=== PATIENT | female | born 1980 | race African-American/Black ===

== ENCOUNTER 2017-07-03 14:06 | Emergency (ER) | payer MEDICAID ==
[2016-07-13 09:02] VITALS: BMI 28.7
[~2017-07-03 14:06] MED LIST: BACDS PO; BENZ100C4 PO; CEF300 PO; CIP500 PO; CLI150 PO; CYCL10TA29 PO; DIFLUCAN; DIP25 PO; HYDR-4228 PO; HYDR-4309 PO; HYDR1TAB PO; HYDR50CA47 PO; HYDR50CA48 PO; IBU600 PO; IBU800 PO; IBUP600T22 PO; ILOP6TAB PO; KET10 PO; LAMO25TA64 PO; LOR5 PO; LURA40TA3 PO; METH4TAB66 PO; METR-160 PO; MICO44CM VG; MOM PO; MOTRIN; MULT-1379 PO; MULT-859 PO; MULT1CAP59 PO; NAPR-724 PO; NIC10R INH; NO RTN MEDS; NOR5/325 PO; OMEG-11 PO; OND4 PO; ONDA4TAB PO; PAL3PT PO; PALI6TAB8 PO; PER PO; PRE20 PO; PRED20TA6 PO; PREN-127 PO; PRO25 IV; QUE100 PO; QUET100T29 PO; QUET50TA21 PO; SERT-1 PO; SERT-181 PO; SULF-198 PO; TOPI-119 PO; TOPI-121 PO; TOPI-28 PO; TRA50 PO; TRAZ-156 PO; TRAZ150T8 PO; VAL500 PO; VALA100062 PO
--- NOTE | 2017-07-03 14:07 | ER Report ---
History and Physical Time Seen By MD: 14:06 Allergies: Coded Allergies: bupropion (Verified Allergy, Severe, MIGRAINE/MUSCLE SPASMS, 03/04/17) amoxicillin (Verified Allergy, Mild, 02/11/17) lidocaine (Verified Allergy, Mild, 02/11/17) Penicillins (Verified Adverse Reaction, Severe, THROWS UP VIOLENTLY, ) codeine (Verified Adverse Reaction, Intermediate, NAUSEA/VOMITING, 02/11/17 ) iloperidone (Verified Adverse Reaction, Unknown, 02/11/17) NEUTROPENIA Uncoded Allergies: GRASSES (Allergy, Intermediate, 04/22/10) Home Meds Reported Medications Multivitamin (MULTIVITAMINS) 1 Each Capsule, 1 EACH PO DAILY, CAPSULE 03/07/17 Lamotrigine (LAMICTAL) 25 Mg Tablet, 25 MG PO DAILY 03/07/17 Lurasidone Hcl (LATUDA) 40 Mg Tablet, 40 MG PO QHS 03/07/17 Nicotine (NICOTROL) 10 Mg/Inh Ctr, 10 MG INH use Nicotrol cartridge 02/23/17 [place]-3 Fatty Acids/Fish Oil (FISH OIL 1,000 MG CAPSULE) 1 Each Capsule, 1 EACH PO, CAPSULE purchase over the counter 02/23/17 Hx Smoking: Yes Smoking Status: Current: Every Day Smoker Exposure to Second Hand Smoke?: Yes Hx Substance Use Disorder: No (OCCASSIONAL MARIJUANA) Hx Alcohol Use: Yes KARY CHANDLER MD Jul 03, 2017 14:07
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
[2017-07-03] MEDS ORDERED: LURA60TA (14:14)
[2017-07-03] MEDS ORDERED: ESCI10TA8 PO (14:14)
[2017-07-03] MEDS ORDERED: LAMO100T56 PO ×2 (14:14)
[2017-07-03] MEDS ORDERED: LAMO100T52 PO (14:17)
[2017-07-03] MEDS ORDERED: ESCITALOPRAM OXALATE 10 MG TAB PO ONE (14:35)
[2017-07-03 14:44] LABS: PLATELET COUNT, AUTOMATED 293 K/uL (150-450)
[2017-07-03] MEDS ORDERED: QUET100T29 PO (14:54)
[2017-07-03] MEDS ORDERED: ACETAMINOPHEN 500 MG TAB PO ONE (16:35)
[2017-07-03] MEDS ORDERED: KETOROLAC 60 MG/2 ML VIAL IM ONE (18:30)
[2017-07-04 08:57] VITALS: BP 104/76
== END 2017-07-04 09:00 | disposition short-term general hospital (02) ==
LOC: ER 14:09
DX: R45.851 Suicidal ideations (principal); R51 Headache; F17.200 Nicotine dependence, unspecified, uncomplicated; Z87.440 Personal history of urinary (tract) infections; F31.9 Bipolar disorder, unspecified; F25.9 Schizoaffective disorder, unspecified; F32.9 Major depressive disorder, single episode, unspecified
CPT/HCPCS: 80305; 81001; 81025; 83735; 84443; 85025; 99285; G0480; 80320; 80329; 82040; 82247; 82310; 82374; 82435; 82565; 82947; 84075; 84132; 84155; 84295; 84450; 84460; 84520

== ENCOUNTER → 2017-07-04 | Outpatient (CLI) | payer MEDICAID ==
[2016-07-13 09:02] VITALS: BMI 28.7
[~2017-07-04] MED LIST changes: +ESCI10TA8 PO; +LAMO100T52 PO; +LAMO100T56 PO; +LURA60TA
== END ==
LOC: AMB 08:59
PROVIDERS: ATTEND Nurse Practitioner
DX: R45.851 Suicidal ideations (principal); F32.9 Major depressive disorder, single episode, unspecified
CPT/HCPCS: A0425; A0428

== ENCOUNTER 2017-12-01 20:13 | Emergency (ER) | payer MEDICAID ==
[2016-07-13 09:02] VITALS: Wt 104.8 kg
[~2017-12-01 20:13] MED LIST changes: -NAPR-724 PO; +NAPR500T31 PO
--- NOTE | 2017-12-01 20:22 | ER Report ---
History and Physical Time Seen By MD: 20:21 HPI/ROS CHIEF COMPLAINT: Foot and back pain HISTORY OF PRESENT ILLNESS: 37-year-old female patient presents to emergency room with complaint of bilateral feet and back pain. Patient states that this been going on today. 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 She states that she's been doing a lot of standing. She has bought new shoes does seem to help with the transition. She states that today that she is having significant amount of pain and swelling to her feet and ankles. She states that she has pain to her back as well. She denies any injury. She states she has not taken any medication for this. She denies any fevers, chills, nausea, vomiting or diarrhea. 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 Reported Medications Divalproex Sodium (DEPAKOTE) 500 Mg Tablet.dr, 500 MG PO BID, TAB 12/01/17 Lamotrigine (LAMICTAL) 100 Mg Tablet, 100 MG PO QAM 07/03/17 Discontinued Reported Medications Quetiapine Fumarate (SEROQUEL) 100 Mg Tablet, 100 MG PO QHS 07/03/17 Escitalopram Oxalate (ESCITALOPRAM OXALATE) 10 Mg Tablet, 10 MG PO QDAY, TAB 07/03/17 Lurasidone Hcl (LATUDA) 60 Mg Tablet, QDAY 07/03/17 Past Medical/Surgical History Patient has a past medical history of migraines, heart murmur, ulcers, frequent UTIs, right shoulder fracture, back pain, anemia, occasional marijuana use, alcohol use, bipolar, schizoaffective, multiple personality, depression, suicide attempt. Patient has a surgical history of tonsillectomy, cautery of her nose, right shoulder surgery, left rotator cuff repair, tubal ligation, hysterectomy, appendectomy, umbilical hernia repair. Patient has a family medical history of stroke, [place]. Reviewed Nurses Notes: Yes Hx Smoking: Yes Smoking Status: Current: Every Day Smoker Exposure to Second Hand Smoke?: Yes Hx Substance Use Disorder: No (OCCASSIONAL MARIJUANA) Hx Alcohol Use: Yes Constitutional Vital Sign - Last 24 Hours 12/01/17 20:23 Temp 98.7 Pulse 76 Resp 14 B/P (MAP) 112/74 Pulse Ox 96 O2 Delivery Room Air Physical Exam General Appearance: The patient is alert, has no immediate need for airway protection and no current signs of toxicity. Respiratory: Chest is non tender, lungs are clear to auscultation. Cardiac: regular rate and rhythm Gastrointestinal: Abdomen is soft and non tender, no masses, bowel sounds normal. Musculoskeletal: Neck: Neck is supple and non tender. Extremities have full range of motion and are non tender. Patient does have some mild swelling around the Achilles as well as tenderness to feet. No numbness or tingling. Back: Patient does have bilateral tenderness to paraspinous muscles up in the thoracic spine as well as down to the lumbar spine Skin: No rashes or lesions. DIFFERENTIAL DIAGNOSIS: After history and physical exam differential diagnosis was considered for muscle strain, fracture, contusion. Medical Decision Making EKG/Imaging Imaging Examination: FOOT 3 VIEW RIGHT Comparison: None. History: pain after working today Findings: No fracture. Alignment and joint spaces are normal. Soft tissues are unremarkable. IMPRESSION: Negative right foot. Report Dictated By: Elbert Watkins MD at 12/01/2017 9:56 PM Report E-Signed By: Elbert Watkins MD at 12/01/2017 9:58 PM Examination: FOOT 3 VIEW LEFT Comparison: None. History: pain after working today Findings: No fracture. Alignment and joint spaces are normal. Soft tissues are unremarkable. IMPRESSION: Negative left foot. Report Dictated By: Elbert Watkins MD at 12/01/2017 9:58 PM Report E-Signed By: Elbert Watkins MD at 12/01/2017 9:59 PM Examination: LUMBAR SPINE 4 VIEWS Comparison: None. History: pain after working today Findings: 5 lumbar type vertebral segments. Vertebral body height and alignment is within normal limits. Thoracolumbar, facet, and lumbosacral alignment is maintained. Sacroiliac joints are unremarkable. Soft tissues are unremarkable. IMPRESSION: Negative lumbar spine. Report Dictated By: Elbert Watkins MD at 12/01/2017 10:01 PM Report E-Signed By: Elbert Watkins MD at 12/01/2017 10:02 PM Examination: THORACIC SPINE 3 VIEWS Comparison: None. History: pain after working today Findings: 12 thoracic type vertebral segments. Vertebral body height and alignment is within normal limits. Cervicothoracic alignment is maintained. Disc spaces are unremarkable. Visualized portions of the ribs are intact. No evidence of acute disease in the visualized thorax. IMPRESSION: Negative thoracic spine. Report Dictated By: Elbert Watkins MD at 12/01/2017 9:59 PM Report E-Signed By: Elbert Watkins MD at 12/01/2017 10:01 PM ED Course/Re-evaluation ED Course Patient was admitted to exam room, history and physical were obtained. Differential diagnoses were considered. On examination lungs are clear, heart is regular, abdomen soft nontender. Patient has tenderness to the paraspinous muscles around the thoracic and lumbar spine, also has some tenderness to the feet and especially around the heels and Achilles tendons. X-rays done of the bilateral feet, thoracic and lumbar spines. The results were negative. I discussed with patient the findings on the x-rays. I did tell her that I expected that we would find a negative x-ray. We will go ahead and treat her tonight with Toradol that she can take as needed for pain. We will also start her on diclofenac twice a day for the next 10 days. She is to limit her activity by pain, she has to sit down or rested much she is able to work. She is return to emergency room if condition worsens. Patient verbalized understanding and agreement with plan. Decision to Disposition Date: December 01, 2017 Decision to Disposition Time: 22:10 Depart Departure Latest Vital Signs Vital Signs Date Time Temp Pulse Resp B/P (MAP) Pulse Ox O2 Delivery O2 Flow Rate FiO2 12/01/17 20:23 98.7 76 14 112/74 96 Room Air Impression: Primary Impression: Bilateral foot pain Additional Impression: Spasm of muscle of lower back Condition: Improved Disposition: HOME OR SELF-CARE New Scripts Diclofenac Sodium (DICLOFENAC SODIUM) 75 Mg Tablet. 75 MG PO BID, #20 TAB Prov: SHERLYN RAMIREZ 12/01/17 Patient Instructions: Back Pain (ED) Additional Instructions: Limit activity by pain. Get plenty of rest. Make sure that you are wearing good shoes. Make sure that you are taking time to rest your legs and back when you are working especially as you are new at this job. Take Tylenol as needed for pain. Take the medication as prescribed. Return to the ER if condition worsens. Problem Qualifiers SHERLYN RAMIREZ December 01, 2017 20:22
[2017-12-01] MEDS ORDERED: DIVA500T98 PO (20:31)
--- NOTE | 2017-12-01 22:03 | RADIOLOGY IMAGING REPORT ---
FACILITY: [facility] PATIENT NAME: Jose Luis Roberts : 1980 MR: [id number] V: [id number] EXAM DATE: ORDERING PHYSICIAN: SHERLYN RAMIREZ TECHNOLOGIST: Location: [facility] Patient: Jose Luis Roberts : 1980 Visit/Account:[id number] Date of Sevice: 12/01/2017 Examination: FOOT 3 VIEW RIGHT Comparison: None. History: pain after working today Findings: No fracture. Alignment and joint spaces are normal. Soft tissues are unremarkable. IMPRESSION: Negative right foot. Report Dictated By: Elbert Watkins MD at 12/01/2017 9:56 PM Report E-Signed By: Elbert Watkins MD at 12/01/2017 9:58 PM WSN:[id number]
--- NOTE | 2017-12-01 22:03 | RADIOLOGY IMAGING REPORT ---
FACILITY: [facility] - [place], [place] PATIENT NAME: Jose Luis Roberts : 1980 MR: [id number] V: [id number] EXAM DATE: ORDERING PHYSICIAN: SHERLYN RAMIREZ TECHNOLOGIST: Location: [facility] Patient: Jose Luis Roberts : 1980 Visit/Account:[id number] Date of Sevice: 12/01/2017 Examination: FOOT 3 VIEW LEFT Comparison: None. History: pain after working today Findings: No fracture. Alignment and joint spaces are normal. Soft tissues are unremarkable. IMPRESSION: Negative left foot. Report Dictated By: Elbert Watkins MD at 12/01/2017 9:58 PM Report E-Signed By: Elbert Watkins MD at 12/01/2017 9:59 PM WSN:[id number]
--- NOTE | 2017-12-01 22:05 | RADIOLOGY IMAGING REPORT ---
FACILITY: [facility] PATIENT NAME: Jose Luis Roberts : 1980 MR: [id number] V: [id number] EXAM DATE: ORDERING PHYSICIAN: SHERLYN RAMIREZ TECHNOLOGIST: Location[place] [facility] [place] Patient: Jose Luis Roberts : 1980 Visit/Account:[id number] Date of Sevice: 12/01/2017 Examination: THORACIC SPINE 3 VIEWS Comparison: None. History: pain after working today Findings: 12 thoracic type vertebral segments. Vertebral body height and alignment is within normal l imits. Cervicothoracic alignment is maintained. Disc spaces are unremarkable. Visualized portions of the ribs are intact. No evidence of acute disease in the visualized thorax. IMPRESSION: Negative thoracic spine. Report Dictated By: Elbert Watkins MD at 12/01/2017 9:59 PM Report E-Signed By: Elbert Watkins MD at 12/01/2017 10:01 PM WSN:[id number]
--- NOTE | 2017-12-01 22:06 | RADIOLOGY IMAGING REPORT ---
[place] [facility] [place] PATIENT NAME: Jose Luis Roberts : 1980 MR: [id number] V: [id number] EXAM DATE: ORDERING PHYSICIAN: SHERLYN RAMIREZ TECHNOLOGIST: Location: [facility] Patient: Jose Luis Roberts : 1980 Visit/Account:[id number] Date of Sevice: 12/01/2017 Examination: LUMBAR SPINE 4 VIEWS Comparison: None. History: pain after working today Findings: 5 lumbar type vertebral segments. Vertebral body height and alignment is within normal limi ts. Thoracolumbar, facet, and lumbosacral alignment is maintained. Sacroiliac joints are unremarkable . Soft tissues are unremarkable. IMPRESSION: Negative lumbar spine. Report Dictated By: Elbert Watkins MD at 12/01/2017 10:01 PM Report E-Signed By: Elbert Watkins MD at 12/01/2017 10:02 PM WSN:[id number]
[2017-12-01] MEDS ORDERED: DICL-195 PO (22:09)
[2017-12-01] MEDS ORDERED: KETOROLAC TROM 10 MG TAB TH PO ONE (22:15)
[2017-12-01 22:16] VITALS: BP 114/78
== END 2017-12-01 22:19 | disposition home or self-care (01) ==
LOC: ER 20:38
DX: M79.672 Pain in left foot (principal); M79.671 Pain in right foot; M62.830 Muscle spasm of back
CPT/HCPCS: 72072; 72120; 99283

== ENCOUNTER → 2018-01-27 | Outpatient (CLI) | payer MEDICAID ==
[2016-07-13 09:02] VITALS: BMI 28.7
[~2018-01-27] MED LIST changes: +DICL-195 PO; +DIVA500T98 PO; -TRAZ-156 PO; +TRAZ50TA34 PO
--- NOTE | 2018-01-27 15:07 | RADIOLOGY IMAGING REPORT ---
FACILITY: [facility] [place] PATIENT NAME: SHAKA LORENZ : [id number] MR: [id number] V: [id number] EXAM DATE: [id number] ORDERING PHYSICIAN: JANET THOMAS TECHNOLOGIST: Abigail Acevedo PROCEDURE:BILATERAL DIAGNOSTIC DIGITAL MAMMOGRAM WITH CAD ASSISTED INTERPRETATION & 3D TOMOSYNTHESIS COMPARISON:None. INDICATIONS:LUMP IN UPPER OUTER QUADRANT OF LEFT BREAST FINDINGS: A small to moderate amount of fibroglandular tissue is seen throughout the breasts. There's a small ovoid nodular density in the upper outer quadrant of the Left breast at the junctional middle and posterior 1/3 which could account for patient's palpable findings. Todays targeted Left breast Ultrasound did demonstrate a small fatty replaced lymph node in this location. There is no demonstration of malignant appearing mass, malignant appearing calcifications or other secondary sign of malignancy in either breast. DIAGNOSTIC CATEGORY 2--BENIGN FINDING. RECOMMENDATIONS: ROUTINE MAMMOGRAM AND CLINICAL EVALUATION. CLINICAL EVALUATION. IMPRESSION: BIRADS 2: Benign finding. There's a small ovoid nodular density upper outer quadrant of the Left breast which was shown sonographically to represent a small fatty replaced lymph node. This may account for patient's palpable findings. Clinical follow-up recommended. Dictated by: Katlyn Zimmerman M.D. on 01/27/2018 at 14:48 Transcribed by: ANGELIQUE on 01/27/2018 at 15:02 Approved by: Katlyn Zimmerman M.D. on 01/27/2018 at 15:06 [facility]
--- NOTE | 2018-01-27 15:25 | RADIOLOGY IMAGING REPORT ---
FACILITY: [facility] PATIENT NAME: SHAKA LORENZ : [id number] MR: [id number] V: [id number] EXAM DATE: [id number] ORDERING PHYSICIAN: JANET THOMAS TECHNOLOGIST: Sp Hall RDMS, ALBERT PROCEDURE:US LEFT BREAST COMPARISON:None. INDICATIONS:PALPABLE LUMP UPPER OUTER QUADRANT LEFT BREAST. FINDINGS: In the 2 o'clock position of the Left breast 8cm from the nipple there is a small ovoid fatty replaced intramammary lymph node measuring 7.7 x 7.6 x 3.2mm this likely corresponds to the small nodule seen on Today's mammogram. This may account for patient's palpable findings. DIAGNOSTIC CATEGORY 2--BENIGN FINDING. RECOMMENDATIONS: ROUTINE MAMMOGRAM AND CLINICAL EVALUATION. CLINICAL EVALUATION. IMPRESSION: BIRADS 2: Benign finding. There's a small fatty replaced lymph node 2 o'clock position of the Left breast 8cm from the nipple which would account for Today's mammographic findings. This may account for patient's palpable findings. Clinical follow-up recommended. Dictated by: Katyln Zimmerman M.D. on 01/27/2018 at 15:05 Transcribed by: ANGELIQUE on 01/27/2018 at 15:12 Approved by: Katlyn Zimmerman M.D. on 01/27/2018 at 15:24 [facility]
== END ==
LOC: MAMO 00:45
PROVIDERS: ATTEND Obstetrics & Gynecology
DX: N94.4 Primary dysmenorrhea (principal); N63.21 Unspecified lump in the left breast, upper outer quadrant
CPT/HCPCS: 77062; 77066

== ENCOUNTER 2018-03-14 14:34 | Outpatient (RCR) | payer MEDICAID ==
[2016-07-13 09:02] VITALS: Ht 170.2 cm; Wt 99.8 kg
[~2018-03-14] VITALS: Ht 170.2 cm; Wt 99.8 kg
[~2018-03-14 14:34] MED LIST changes: -HYDR-4309 PO; +HYDR-653 PO
--- NOTE | 2018-03-15 09:30 | Medical Nutrition Therapy ---
Nutrition Anthropometrics Height (Inches): 67 Weight (Pounds): 220 Champ Nutrition Score: Champ Nutrition Risk Score: Dietary Referral Nutrition Risk Factors: Nutrition Risk Comment: Nutrition/Food History Breakfast: 2 eggs,fried brussel sprouts, 1/2c cheese, salsa, 2c daniel-oftens skips Lunch: bronson double leos cheeseburger, often skips Dinner: lasagna, salad koolaid or burger and FF Snacks: Reg Dr nelson, cheee, desserts, juice Nutritional Education Nutrition Education Topic: Weight Loss Diet (wioth dx prediabetes) Learning Readiness: Interested, Not Ready (may not be ready for lifestlye changes at this time.) Teaching Methods: Discussion, Handout, Demonstration Response to Teaching: Verbalize understanding, Reinforcement needed Teaching Recipient: Patient Nutrition Counseling: Pt with A1C 5.8 and dx of prediabetes. Interested in diet changes to avoid dx of diabetes. Discussed what is prediabetes. Emphasised importance of wt loss and exercise. Stressed importance of lifestlye changes rather than "diet". Pt has overwt son she is concerned may develop diabetes. Has paternal family hx of T2DM. Pt has tried tracking intake in past. discussed various staci that she could try. Pt is tracking activity. Encouraged pt to continue activity and tracking. Reviewed typical day and 24 hr recall. Pt has concerns regarding how to incorporate her cultural foods which are fried and desserts. Discussed possibly modifying cooking technique, or having only occasionally. Pt may not be ready for lifestyle changes at this time. Discussed f/u visits reviewing and modifiying her family recipes, exercise, and dealing with cravings. will f/u 03/28 Nutrition Monitoring & Eval RD Patient Assessment Time: 60 minutes Nutritional Comment: Provided 70 minutes MNT for dx prediabetes. JUAN LUIS HUGHES Mar 14, 2018 16:22
[2018-04-08] MEDS ORDERED: ESCI10TA8 PO (14:45)
[2018-04-08] MEDS ORDERED: LAMO25TA64 PO (14:45)
[2018-04-08] MEDS ORDERED: MIRT-1 PO (14:45)
[2018-04-11] MEDS ORDERED: ESCI20TA38 PO (07:17)
[2018-04-11] MEDS ORDERED: MULT-1379 PO (07:18)
[2018-04-11] MEDS ORDERED: IBUP400T13 PO (07:19)
[2018-04-11] MEDS ORDERED: NIC10R INH (07:19)
[2018-04-11] MEDS ORDERED: NICOTROL CARTRIDGE PO (07:20)
[2018-04-11] MEDS ORDERED: NEOM1PAC11 TP (07:21)
[2018-04-11] MEDS ORDERED: ACET-1966 PO (07:23)
--- NOTE | 2018-04-11 12:31 | Medical Nutrition Therapy ---
Nutritional Education Nutrition Education Topic: Weight Loss Diet Learning Readiness: Interested Teaching Methods: Discussion Response to Teaching: Verbalize understanding, Reinforcement needed Teaching Recipient: Patient Nutrition Counseling: Wt stable. Pt has not been tracking foods but is looking at portion sizes. Enouraged pt to get measuring cups out to get better understanding of what a standard portion is vs what her idea of a portion is. Discussed how to involve family and get active. Pt will work on increasing exercise by walking. Set a goal of increasing vegetable intake and adding strenthing exercise to routine. Will f/u Apr 24 @ 2:30. Nutrition Monitoring & Eval RD Patient Assessment Time: [address] Assessment Type: RD Education Nutritional Comment: Provided 40 minutes MNT for dx prediabetes. Copies To Copies to: MELANI OAKES ; JUAN LUIS HUGHES Apr 11, 2018 12:31
== END 2018-04-18 ==
LOC: DIET 14:34
PROVIDERS: ATTEND Nurse Practitioner Family
DX: Z71.3 Dietary counseling and surveillance (principal); R73.03 Prediabetes; Z83.3 Family history of diabetes mellitus; F32.9 Major depressive disorder, single episode, unspecified; R20.2 Paresthesia of skin; E03.9 Hypothyroidism, unspecified; G47.39 Other sleep apnea; E66.09 Other obesity due to excess calories; Z68.34 Body mass index [BMI] 34.0-34.9, adult
CPT/HCPCS: 97802; 97803

== ENCOUNTER 2018-04-08 14:38 | Emergency (ER) | payer SELFPAY ==
[2016-07-13 09:02] VITALS: Wt 90.7 kg
[~2018-04-08 14:38] MED LIST changes: -ACET-1966 PO; -ESCI20TA38 PO; +HYDR-4309 PO; -HYDR-653 PO; -IBUP400T13 PO; -MIRT-1 PO; -NEOM1PAC11 TP; -NICOTROL CARTRIDGE PO
[2018-04-08] MEDS ORDERED: LAMO25TA64 PO (14:45)
[2018-04-08] MEDS ORDERED: ESCI10TA8 PO (14:45)
[2018-04-08] MEDS ORDERED: MIRT-1 PO (14:45)
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
[2018-04-08] MEDS ORDERED: TETRACAIN/EPI/LIDO GEL 3ML SYR TP ONE (15:10)
[2018-04-08 15:33] LABS: PLATELET COUNT, AUTOMATED 284 K/uL (150-450)
--- NOTE | 2018-04-08 16:24 | BHS - Psychiatric Evaluation ---
ER - Title 25 MHE Evaluation Title 25 Evaluation Patient Detained By: Physician Referral Source: PD Date Patient Detained: Apr 08, 2018 Time Patient Detained: 14:30 Date Usp Expires: Apr 11, 2018 Time Usp Expires: 14:30 Legal Status: Police Hold: Yes Legal Status: Residence: [facility] Resident Assessment Data Provided By: Patient, Law Enforcement HPI/ROS: Suicide attempt, pt threatened suicide and cut left wrist Admit due to SI or Attempt: Yes Suicide Plan: Has Plan with Access Alcohol or Drugs Involved: No Is Patient Info Reliable: Yes Is Collateral Info Reliable: Yes Current Risk & History Current Dangerous Risk Assessm: Current Suicide Ideation Past Dangerous Risk Assessm: Suicide Ideation-last 6mo, Suicide Attempts-last 6 mo Previous Suicide Attempt: Past - Low Lethality Previous Psychiatric Illness: Yes Previous Psychiatric Treatment: Yes Risk Assessment & Disposition Evaluated Risk Assessment: moderate risk Impression: Primary Impression: Suicidal ideations Additional Impression: Wrist laceration Meets Mental Illness Req.: Yes Meets Dangerousness Req.: Yes Emergency Usp to be: Upheld Date of Decision: Apr 08, 2018 Time of Decision: 16:00 Patient is Medically Stable at: Yes Disposition: [facility] Problem Qualifiers Additional Impression: Wrist laceration Encounter type: initial encounter Laterality: left Qualified Codes: S61.512A - Laceration without foreign body of left wrist, initial encounter ANDIE TOLEOD MD Apr 08, 2018 16:24
[2018-04-08 16:41] VITALS: BP 111/80
== END 2018-04-08 16:44 | disposition other institution (70) ==
LOC: ER 14:43
DX: S61.512A Laceration without foreign body of left wrist, initial encounter (principal); R45.851 Suicidal ideations
CPT/HCPCS: 36415; 80305; 80320; 80329; 81001; 82040; 82247; 82310; 82374; 82435; 82565; 82947; 84075; 84132; 84155; 84295; 84443; 84450; 84460; 84520; 85025; 99283

== ENCOUNTER 2018-04-08 16:05 | Inpatient (IN) | payer SELFPAY ==
[2016-07-13 09:02] VITALS: Ht 162.6 cm; Wt 90.7 kg
[~2018-04-08] VITALS: Ht 162.6 cm; Wt 90.7 kg
[~2018-04-08 16:05] MED LIST changes: +MIRT-1 PO
[2018-04-08 16:55] VITALS: BP 102/64
[2018-04-08] MEDS ORDERED: ACETAMINOPHEN 325 MG TAB PO PRN (17:00)
[2018-04-08] MEDS ORDERED: NICOTINE INH SYSTEM 10 MG/INH INH PRN (17:00)
[2018-04-08] MEDS ORDERED: MAG HYD/AL HYD/SIMETH 30ML UDC PO PRN (17:00)
[2018-04-08] MEDS ORDERED: NICOTINE CARTRIDGE 1 EA PO PRN (17:00)
[2018-04-08] MEDS: IBUPROFEN 200 MG TAB PO PRN (20:35)
[2018-04-08] MEDS: MIRTAZAPINE 15 MG TAB PO SCH (21:49)
[2018-04-09 06:12] VITALS: BP 87/63
[2018-04-09] MEDS: MULTIVITAMINS PO SCH (08:17)
[2018-04-09] MEDS: lamoTRIgine 25 MG TAB PO SCH (08:17)
[2018-04-09] MEDS: IBUPROFEN 200 MG TAB PO PRN (08:21)
[2018-04-09] MEDS: ESCITALOPRAM OXALATE 10 MG TAB PO SCH (13:37)
[2018-04-09 15:13] VITALS: BP 109/74
[2018-04-09] MEDS: MIRTAZAPINE 15 MG TAB PO SCH (21:08)
[2018-04-10 06:21] VITALS: BP 102/65
[2018-04-10] MEDS: lamoTRIgine 25 MG TAB PO SCH (07:58)
[2018-04-10] MEDS: MULTIVITAMINS PO SCH (07:58)
[2018-04-10] MEDS: IBUPROFEN 200 MG TAB PO PRN (08:00)
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
[2018-04-10] MEDS ORDERED: NEOMYCIN/POLYMYX/BACITR 30 GM TP PRN (13:40)
--- NOTE | 2018-04-10 14:08 | BHS Progress Note ---
[facility] - Subjective Progress Notes Subjective This is a very well known patient to this provider. Patient is under an emergency detainment, for self harm. Patient interacting well with this provider, denies any significant symptoms today, other than mild frustration. Will use triple antibiotic ointment on self inflicted laceration and will plan on discharging to home tomorrow AM, in time to meet with her outpatient therapist, with whom this patient with a longstanding history of borderline personality has a relationship with. No other concerns, no medication changes. Suicidal Ideation: None Homicidal Ideation: None [facility] - Objective Physical Exam Vital Signs Vital Signs Date Time Temp Pulse Resp B/P (MAP) Pulse Ox O2 Delivery O2 Flow Rate FiO2 04/10/18 06:21 98.8 64 15 102/65 (77) 95 CPAP 04/09/18 06:12 2.0 Muscle Strength and Tone: WNL Gait and Station: Steady [facility] Medications Reviewed: Side Effects, Benefits of Medication, Risks Allergies Reviewed: Yes Mental Status Exam General Appearance: Casual, Well Groomed, Good Eye Contact, Cooperative, Polite, Good Interaction; No Unkept, No Tearful, No Psychomotor Agitation, No Psychomotor Retardation, No Bizarre Mannerisms, No Tics Speech: Clear, Spontaneous, Normal Rate, Normal Rhythm, Normal Volume (soft at times), Normal Tone; No Delayed, No Slurred, No Garbled, No Rambling, No In appropriate Mood: Dysthmic/Depressed (improving) Affect: Full and Appropriate, Calm; No Withdrawn, No Tearful, No Anxious, No Agitated Thought Process: Organized, Logical, Goal Directed (can I go home today?); No Loose Associations, No Flight of Ideas Thought Content: No Suicidal Ideation, No Homicidal Ideation, No Delusions, No Auditory Halllucinations, No Visual Hallucinations, No Thought Broadcasting, No Ideas of Reference, No Obsessions, No Compulsions Sensorium: Clear Cognition: Alert & Oriented-Person, Alert & Oriented-Place, Alert & Oriented- Time, Kjrcd-Utvzylrn-Pyxcccsep Memory: Immediate, Recent, Remote Intelligence: Average Insight Judgment: Fair (longstanding history of borderline persionality with progress made over many years. ) [facility] Assessment and Plan [id number] Encounter Date: Apr 10, 2018 [id number] Encounter Time: 10:30 [facility] Plan: Necessary Precautions, Individual/Group Therapy, Admin/Titrate Meds, Educate Patient Tobacco Medications: Started Multpiple Antipsychotics Used: No Problems: (1) Borderline personality disorder Status: Chronic Condition 1. continue treatment. 2. plan for discharge tomorrow AM. MARIO BELCHER MD Apr 10, 2018 14:08
[2018-04-10 14:15] VITALS: BP 108/65
[2018-04-10] MEDS: ESCITALOPRAM OXALATE 10 MG TAB PO SCH (14:15)
[2018-04-10] MEDS: MIRTAZAPINE 15 MG TAB PO SCH (20:28)
[2018-04-11 05:46] VITALS: BP 120/77
[2018-04-11] MEDS ORDERED: ESCI20TA38 PO (07:17)
[2018-04-11] MEDS ORDERED: MULT-1379 PO (07:18)
[2018-04-11] MEDS ORDERED: NIC10R INH (07:19)
[2018-04-11] MEDS ORDERED: IBUP400T13 PO (07:19)
[2018-04-11] MEDS ORDERED: NICOTROL CARTRIDGE PO (07:20)
[2018-04-11] MEDS ORDERED: NEOM1PAC11 TP (07:21)
[2018-04-11] MEDS ORDERED: ACET-1966 PO (07:23)
[2018-04-11] MEDS: lamoTRIgine 25 MG TAB PO SCH (08:00)
[2018-04-11] MEDS: MULTIVITAMINS PO SCH (08:00)
--- NOTE | 2018-04-12 13:49 | SCHAAF DISCHARGE ---
DATE OF ADMISSION: April 08, 2018 DATE OF DISCHARGE: April 11, 2018 ATTENDING PHYSICIAN Henry Ariza MD Patient was seen at approximately 0730 hours on the a.m. of April 11, 2018 for note concerning this dictation. FINAL DIAGNOSES 1. Borderline personality disorder. 2. Bipolar disorder, unspecified. 3. Social stressors. 4. Parent and adult-child relational problem. REASON FOR ADMISSION Please see History and Physical for full details. This is a very well-known 37-year-old female who had multiple admissions to the Behavioral Health Unit here at [facility] over many years. Overall, patient continues to make slow gains and accomplishments regarding her primary diagnosis of borderline personality disorder. Patient engaged in self-harm after having an argument with her daughter, which involved patient being emergency detained and placed on the Behavioral Health Unit. Again, please refer to History and Physical for full details. Patient's suicidal ideation quickly resolved. No aggression towards staff or self-harm was notable on the Unit. Patient took an active role in her treatment and was discharged home. PHYSICAL EXAMINATION Please see emergency room note. Notable for a 37-year-old female well known to the emergency room. Vital signs at the time of admission: Temperature 99.1, pulse 93], respiratory rate 18, blood pressure 113/80 and pulse oximetry 96% on room air. At the time of discharge from [facility] [address], vital signs showed: Temperature 98.1, pulse 78, respiratory rate 15, blood pressure 120/77 and pulse oximetry 93% on room air. Patient was admitted with cuts to left wrist, requiring minimal suturing. A 3 cm horizontal laceration to dermis level only was repaired in the emergency room prior to admission. No tendon injury was identified. Patient is a heavy-set 37-year-old female in no other acute medical stress. MENTAL STATUS EXAMINATION GENERAL APPEARANCE, BEHAVIOR AND ATTITUDE: Cooperative, polite 37-year-old female interacting well, making fair to good eye contact. No psychomotor agitation or retardation. No bizarre mannerisms or tics. Patient interacting well with this provider and other treatment team staff. SPEECH: Within normal limits. Regular rate, rhythm, volume and tone. MOOD: Described as good and improved. AFFECT: Full and mood-congruent. THOUGHT PROCESSES: Goal-directed, logical. No loose associations or flight of ideas. THOUGHT CONTENT: Free of auditory or visual hallucinations, ideas of reference, thought broadcastings, delusions, obsessions or compulsions. The patient is denying suicidal or homicidal ideation. SENSORIUM: Clear. COGNITION: Alert and oriented to person, place, time and situation. MEMORY: Immediate, recent and remote was estimated intact. INTELLIGENCE: Average, based on interview. INSIGHT AND JUDGMENT: Considered grossly intact and improving over the years and appropriate for ongoing outpatient care. Maladaptive stress coping mechanisms continue to exist. RESULTS OF TESTING Imaging: None. Laboratory data: See above. Psychological testing: None. CONSULTATIONS None. TREATMENT Patient remained on current outpatient medication regimen and did participate in individual and group therapy. HOSPITAL COURSE Patient took an active role in her treatment. She did not engage in any self- harm or suicidal behavior on the Unit. She was not aggressive towards staff or other patients. CONDITION OF PATIENT ON DISCHARGE Stable. Considered a minimal risk to herself or others and appropriate for ongoing outpatient management. DISPOSITION The patient was discharged to home and continue to follow up with outpatient treatment. Patient would participate in DBT and individual group therapy. The patient would remain on Lexapro 10 mg daily, Lamictal 50 mg daily and Remeron 15 mg at bedtime. Patient has these medications on an outpatient basis. Patient would return in one week for suture removal. Crisis Line was given should symptoms return. The patient agreed to take medications as prescribed and abstain from any illicit substance use or alcohol. The risks, benefits and alternatives of the above discharge plan were discussed. Informed consent was given to proceed with the above discharge plan by this cooperative patient. AMBER
== END 2018-04-11 08:44 | disposition home or self-care (01) | DRG 883 ==
LOC: BHS 16:05
PROVIDERS: ADMIT Registered Nurse Psychiatric/Mental Health, Adult; ATTEND Registered Nurse Psychiatric/Mental Health, Adult
DX: F60.3 Borderline personality disorder (principal); F33.1 Major depressive disorder, recurrent, moderate; G47.30 Sleep apnea, unspecified; Z99.89 Dependence on other enabling machines and devices; Z88.0 Allergy status to penicillin; Z88.8 Allergy status to other drugs, medicaments and biological substances; Z56.3 Stressful work schedule; Z63.79 Other stressful life events affecting family and household; Z91.5 Personal history of self-harm; Z81.8 Family history of other mental and behavioral disorders; Z72.0 Tobacco use; Z88.5 Allergy status to narcotic agent

== ENCOUNTER → 2018-04-08 | Outpatient (CLI) | payer SELFPAY ==
[2016-07-13 09:02] VITALS: BMI 28.7
[~2018-04-08] MED LIST changes: +ACET-1966 PO; +ESCI20TA38 PO; +IBUP400T13 PO; +MIRT-1 PO; +NEOM1PAC11 TP; +NICOTROL CARTRIDGE PO
== END ==
LOC: AMB 14:24
PROVIDERS: ATTEND Nurse Practitioner
DX: S61.512A Laceration without foreign body of left wrist, initial encounter (principal); X78.9XXA Intentional self-harm by unspecified sharp object, initial encounter
CPT/HCPCS: A0425; A0429

== ENCOUNTER 2018-04-26 11:04 | Outpatient (RCR) | payer MEDICAID ==
[2016-07-13 09:02] VITALS: Wt 102.5 kg
[~2018-04-26 11:04] MED LIST changes: +ACET-1966 PO; +ESCI20TA38 PO; -HYDR-4309 PO; +HYDR-653 PO; +IBUP400T13 PO; -METR-160 PO; +METR500T54 PO; +NEOM1PAC11 TP; +NICOTROL CARTRIDGE PO
--- NOTE | 2018-04-26 17:06 | Medical Nutrition Therapy ---
Nutrition Anthropometrics Height (Inches): 67 Weight (Pounds): 226 Champ Nutrition Score: Champ Nutrition Risk Score: Dietary Referral Nutrition Risk Factors: Nutrition Risk Comment: Nutrition/Food History Breakfast: 2c sonya cream of wheat, tea with 2 T honey Lunch: 1 1/2 grilled chees, 1/2c baked beans, 1c crm mushroom soup, 2T honey w tea Dinner: angelica buffet: orange sesame, grilled chick, sw/sr soup, 2 donuts, rice Snacks: 2 hot dogs, 1c beans, 1c chips Nutritional Education Nutrition Education Topic: Weight Loss Diet Learning Readiness: Interested Teaching Methods: Discussion, Handout Response to Teaching: Verbalize understanding Teaching Recipient: Patient Nutrition Counseling: Wt is down 2# past month. Pt was able to verbalized portions sizes however admits has not been following plan. 24 hr recall est kcal intake was ~ 3100. Reviewed portions and encouraged ~ 1500kcal for wt loss. Pt not interested in tracking. Provided plate method with unlimited veg, 3-4 oz meat, 1 fat, 3 CHO/meal. Provided handouts and reviewed stocking healthy kitchen and menues. Pt will f/u for weigh in only 11:00 May 14 and session May 24 @ 11:00. Nutrition Monitoring & Eval RD Patient Assessment Time: [address] Assessment Type: RD Education Nutritional Comment: Provided 40 minutes MNT for dx prediabetes. Copies To Copies to: MELANI OAKES ; JUAN LUIS HUGHES Apr 26, 2018 17:06
== END 2018-05-31 ==
LOC: DIET 11:04
PROVIDERS: ATTEND Nurse Practitioner Family
DX: Z71.3 Dietary counseling and surveillance (principal); R73.03 Prediabetes; E66.09 Other obesity due to excess calories
CPT/HCPCS: 97803

== ENCOUNTER 2018-07-11 15:49 | Outpatient (RCR) | payer MEDICAID ==
[2016-07-13 09:02] VITALS: Ht 170.2 cm; Wt 105.2 kg
[~2018-07-11] VITALS: Ht 170.2 cm; Wt 105.2 kg
[~2018-07-11 15:49] MED LIST changes: +METF-452 PO; +METR500T15 PO; -METR500T54 PO; +OLAN5TAB25 PO; +ONDA4TAB97 PO; +VALA500T66 PO; +sonata
--- NOTE | 2018-07-12 16:07 | Medical Nutrition Therapy ---
Nutrition Anthropometrics Height (Inches): 67 Weight (Pounds): 227 BMI: 35.6 Champ Nutrition Score: Champ Nutrition Risk Score: Dietary Referral Nutrition Risk Factors: Nutrition Risk Comment: Nutrition/Food History Breakfast: skips Lunch: hamb patten on thin bun, avocado Dinner: whole tortino pizza Snacks: 1/4c almonds, fruit Nutritional Education Nutrition Education Topic: Diabetic Nutrition Learning Barriers: Emotional Learning Readiness: Interested Teaching Methods: Discussion, Handout, Demonstration Response to Teaching: Verbalize understanding, Reinforcement needed Teaching Recipient: Patient Nutrition Counseling: Pt was seen in Mar 2018 with elevated BG and A1C 5.8. Was seen for f/u 3 weeks later with stable weight and didn't make recommended diet changes. Pt was no- show for 2nd f/u meeting. Requested this session. Reported that A1C is "over 6 but I don't know what it is". Pt is now taking Victoza and having some hypoglycemia. Pt reported motivated to follow a wt loss meal plan and obtain education to help control diabetes. Reviewed what is diabetes, completed self assessment with diabetes distress issues, nutrtion, glucometer teaching, how to handle hypo and hyperglycemia. Pt will conduct 3 day intensive Bg testing of 7X/day to help determine high, lows and food impact to BG. Pt scheduled for classes. Pt reported extensive psychological issues. Pt reports recieving tx and seeing counselor. Reports no concerns to harm self or others at this time. Pt refused visit with [facility] staff at this time. Nutrition Monitoring & Eval RD Patient Assessment Time: [address] Assessment Type: RD Education Nutritional Comment: Provided 60 minutes diabetes education focusing on what is diabetes, pt self assessment, support plan, scheduleing classes, and demonstrating 3 day intensive BG test of 6X/day. Copies To Copies to: EMLANI OAKES ; JUAN LUIS HUGHES Jul 11, 2018 17:11
--- NOTE | 2018-07-26 15:50 | Medical Nutrition Therapy ---
Nutrition Anthropometrics Height (Inches): 67 Weight (Pounds): 232 BMI: 36.5 Champ Nutrition Score: Champ Nutrition Risk Score: Dietary Referral Nutrition Risk Factors: Nutrition Risk Comment: Physical Findings Physical Appearance: Obese BMI 30-39 Skin Appearance Skin Appearance: Edema Edema Location Modifier: Edema Location: Type of Edema: Degree of Edema: Gastrointestinal Symptoms GI Symtoms: Tube Present: Bowel Sounds: Recent Bowel Pattern: Stool Characteristics: Nutritional Education Nutrition Education Topic: Diabetic Nutrition Learning Readiness: Eager, Interested Teaching Methods: Discussion, Handout Response to Teaching: Return demonstration, Verbalize understanding Teaching Recipient: Patient Nutrition Counseling: Pt weighed in at 232.5#, an increase from last time. RD provided education on what foods have CHO, what foods will raise blood sugar, and glycemix index. Discussion also focused on eating a variety of foods (protein, fat, fiber, and CHO) at meals to lessen the glycemix response, and how to eat out while managing CHO. RD encouraged exercise for weight management, starting with a goal of 30 minutes/day, possibly in 3, 10 minute sessions/day. Pt was provided with 3 handouts on topics including: diabetes, goals, and eating out. Pt was eager and stated that they have already started making lifestyle changes. -SHELBI Nutrition Monitoring & Eval RD Patient Assessment Time: [address] Assessment Type: RD Education Nutritional Comment: Provided 60 minutes diabetes education focusing on what is diabetes, pt self assessment, support plan, scheduleing classes, and demonstrating 3 day intensive BG test of 6X/day. 07/26/18-RD provided 60 minutes of diabetes education focusing on what foods have CHO, serving sizes, glycemic index, and eating out. -KRISS BENTLEY Jul 26, 2018 15:50
--- NOTE | 2018-07-27 11:04 | Medical Nutrition Therapy ---
Nutritional Education Nutrition Education Topic: Diabetic Nutrition Teaching Recipient: Patient Nutrition Counseling: Pt weighed in at 232.5#, an increase from last time. RD provided education on what foods have CHO, what foods will raise blood sugar, and glycemix index. Discussion also focused on eating a variety of foods (protein, fat, fiber, and CHO) at meals to lessen the glycemix response, and how to eat out while managing CHO. RD encouraged exercise for weight management, starting with a goal of 30 minutes/day, possibly in 3, 10 minute sessions/day. Pt was provided with 3 handouts on topics including: diabetes, goals, and eating out. Pt was eager and stated that they have already started making lifestyle changes. -ARG Nutrition Monitoring & Eval RD Patient Assessment Time: [address] Assessment Type: RD Education Nutritional Comment: Provided 60 minutes diabetes education focusing on what is diabetes, pt self assessment, support plan, scheduleing classes, and demonstrating 3 day intensive BG test of 6X/day. 07/26/18-RD provided 60 minutes of diabetes education focusing on what foods have CHO, serving sizes, glycemic index, and eating out. -SHELBI Copies To Copies to: MELANI OAKES ; JUAN LUIS HUGHES Jul 27, 2018 11:04
--- NOTE | 2018-08-04 13:05 | Medical Nutrition Therapy ---
Nutritional Education Nutrition Education Topic: Diabetic Nutrition Learning Readiness: Interested Teaching Methods: Discussion, Handout, Demonstration Response to Teaching: Verbalize understanding Teaching Recipient: Patient Nutrition Counseling: Provided group diabetes education on: sick day management, oral health, complication, A1C, eye care and retinopathy, nephropathy, neuropathy, foot care, exercise, heart healthy, hypo and hyperglycemia, infection, personal health habits, stress, depression and sexual healthy. Nutrition Monitoring & Eval RD Patient Assessment Time: [address] Assessment Type: RD Education Nutritional Comment: Provided 75 minutes diabetes education in a group setting focusing on life skills. Copies To Copies to: MELANI OAKES ; JUAN LUIS HUGHES Aug 04, 2018 13:03
== END 2018-08-15 ==
LOC: DIET 15:49
PROVIDERS: ATTEND Nurse Practitioner Family
DX: E11.65 Type 2 diabetes mellitus with hyperglycemia (principal)
CPT/HCPCS: G0108; G0109

== ENCOUNTER 2018-09-26 15:45 | Emergency (ER) | payer MEDICAID ==
[2016-07-13 09:02] VITALS: Wt 110.2 kg
[2018-09-26] MEDS ORDERED: OLAN10TA21 PO (16:00)
[2018-09-26] MEDS ORDERED: SERT-173 PO (16:00)
--- NOTE | 2018-09-26 16:26 | ER Report ---
History and Physical Time Seen By MD: 16:00 Hx. of Stated Complaint: SI HPI/ROS Chief complaint: Suicidal ideation HPI: 38 year old female presents with suicidal ideation. Patient reports that she got into her car today and had thoughts of driving her car off of a bridge or anything that would end her life. Patient called her counselor who advised her to go to the ER. Patient was brought to the ED by her daughter who she states is a big support for her. Patient has attempted suicide over 27 times in the past, the most recent was cutting her left wrist in April. Patient states she recently moved in with her boyfriend, which she feels is the trigger to her recent suicidal thoughts. Reports that she was in [place] last week where she slept most of the time and wished she wouldn't wake up. When she returned home last week, stressors snowballed throughout the week, including moving in with her boyfriend and she had enough stress build up that it led to her suicidal thoughts. Patient also reports she stopped her lamictal about a week and a half ago due to running out of her medication; her psych provider is aware of this. Patient reports she feels bad leaving her family to take care of herself, however she would like to be admitted to [facility]. ROS: Cardiovascular: Denies chest pain, pressure Respiratory: Denies cough, shortness of breath Gastrointestinal: Denies vomiting, nausea, constipation, diarrhea Psych: Reports depression, suicidal ideation, anxiety. Allergies: Coded Allergies: bupropion (Verified Allergy, Severe, MIGRAINE/MUSCLE SPASMS, 09/26/18) amoxicillin (Verified Allergy, Mild, 09/26/18) lidocaine (Verified Allergy, Mild, 09/26/18) Penicillins (Verified Adverse Reaction, Severe, THROWS UP VIOLENTLY, 09/26/18) codeine (Verified Adverse Reaction, Intermediate, NAUSEA/VOMITING, 09/26/18) iloperidone (Verified Adverse Reaction, Unknown, 09/26/18) NEUTROPENIA Uncoded Allergies: GRASSES (Allergy, Intermediate, 04/22/10) Home Meds Reported Medications Sertraline Hcl (ZOLOFT) 100 Mg Tablet, 1 TAB PO QDAY, TAB 09/26/18 Olanzapine (ZYPREXA) 10 Mg Tablet, 10 MG PO QDAY 09/26/18 Metformin Hcl (METFORMIN HCL) 1,000 Mg Tablet, 500 MG PO QDAY, TAB 12/25/18 Valacyclovir Hcl (VALTREX) 500 Mg Tablet, 800 MG PO PRN 06/22/18 Acetaminophen (TYLENOL) 325 Mg Tablet, 800 MG PO, TAB 06/22/18 Ibuprofen (IBUPROFEN) 400 Mg Tablet, 1 TAB PO Q6H for PAIN, TAB MOTRIN 04/11/18 Discontinued Reported Medications Olanzapine (ZYPREXA) 5 Mg Tablet, 5 MG PO QDAY 06/22/18 [sonata] No Conflict Check, 10 MG 06/22/18 Escitalopram Oxalate (LEXAPRO) 20 Mg Tablet, 15 MG PO QDAY, TAB 06/22/18 Lamotrigine (LAMICTAL) 100 Mg Tablet, 100 MG PO DAILY 06/22/18 Discontinued Scripts Ondansetron Hcl (ZOFRAN) 4 Mg Tablet, 4 MG PO Q6H PRN for NAUSEA/VOMITING, #20 TAB Prov:SHERLYN RAMIREZ YARD BRAKEMAN 06/22/18 Past Medical/Surgical History Past medical history significant for migraines, heart murmur when younger, gastric ulcers, back pain, right shoulder fracture in 2006, diabetes, anemia, bipolar, schizophrenic affective disorder, multiple personality disorder, depresion. Past surgical history significant for umbilical hernia repair at 2 months of age, appendectomy at age 12 or 13, hysterectomy 2008, tubal ligation in 2007, right shoulder surgery in 2006, nose cauterized 4-6 times at ages 5 and 6, tonsillectomy at age 13. Reviewed Nurses Notes: Yes Hx Smoking: Yes Smoking Status: Former Smoker Exposure to Second Hand Smoke?: Yes Hx Substance Use Disorder: No (OCCASSIONAL MARIJUANA) Hx Alcohol Use: Yes Constitutional Vital Sign - Last 24 Hours 09/26/18 09/26/18 15:53 18:04 Temp 98.7 Pulse 88 82 Resp 16 B/P (MAP) 107/80 110/70 (83) Pulse Ox 94 98 O2 Delivery Room Air Room Air Physical Exam General Appearance: The patient is alert, has no immediate need for airway protection and no current signs of toxicity. Eyes: Pupils equal and round no injection. Respiratory: Chest is non tender, lungs are clear to auscultation. Cardiac: regular rate and rhythm Gastrointestinal: Abdomen is soft and non tender, no masses, bowel sounds normal . Skin: No rashes or lesions. Psych: Patient tearful, and anxious throughout exam DIFFERENTIAL DIAGNOSIS: After history and physical exam differential diagnosis was considered for suicidal ideation, depression, anxiety. Medical Decision Making Data Points Result Diagram: 09/26/18 1632 09/26/18 1632 Laboratory Hematology Test 09/26/18 16:24 09/26/18 16:32 Urine Color Yellow Urine Clarity Clear Urine pH 6.0 pH (4.8-9.5) Urine Specific [place] 1.014 Urine Protein Negative mg/dL (NEGATIVE) Urine Glucose (UA) Negative mg/dL (NEGATIVE) Urine Ketones Negative mg/dL (NEGATIVE) Urine Blood Moderate (NEGATIVE) Urine Nitrite Negative (NEGATIVE) Urine Bilirubin Negative (NEGATIVE) Urine Urobilinogen 2.0 mg/dL (0.2-1.9) Urine Leukocyte Esterase Small (NEGATIVE) Urine RBC 2 /HPF (0-2/HPF) Urine WBC <1 /HPF (0-5/HPF) Urine Squamous Epithelial Cells Many /LPF (</=FEW) Urine Bacteria Few /HPF (NONE-FEW) Urine Mucus Few /HPF (NONE-FEW) Urine HCG, Qualitative Negative (NEGATIVE) Urine Opiates Screen Negative Urine Barbiturates Screen Negative Ur Tricyclic Antidepressants Screen Negative Urine Phencyclidine Screen Negative Urine Amphetamines Screen Negative Urine Benzodiazepines Screen Negative Urine Cocaine Screen Negative Urine Cannabinoids Screen Negative Red Blood Count 4.52 M/uL (4.17-5.56) Mean Corpuscular Volume 84.8 fL (80.0-96.0) Mean Corpuscular Hemoglobin 27.7 pg (26.0-33.0) Mean Corpuscular Hemoglobin Concent 32.7 g/dL (32.0-36.0) Red Cell Distribution Width 14.3 % (11.5-14.5) Mean Platelet Volume 7.8 fL (7.2-11.1) Neutrophils (%) (Auto) 54.0 % (39.4-72.5) Lymphocytes (%) (Auto) 34.9 % (17.6-49.6) Monocytes (%) (Auto) 8.0 % (4.1-12.4) Eosinophils (%) (Auto) 2.5 % (0.4-6.7) Basophils (%) (Auto) 0.6 % (0.3-1.4) Nucleated RBC Relative Count (auto) 0.0 /100WBC Neutrophils # (Auto) 2.9 K/uL (2.0-7.4) Lymphocytes # (Auto) 1.8 K/uL (1.3-3.6) Monocytes # (Auto) 0.4 K/uL (0.3-1.0) Eosinophils # (Auto) 0.1 K/uL (0.0-0.5) Basophils # (Auto) 0.0 K/uL (0.0-0.1) Nucleated RBC Absolute Count (auto) 0.00 K/uL Sodium Level 139 mmol/L (137-145) Potassium Level 3.6 mmol/L (3.5-5.0) Chloride Level 108 mmol/L (98-107) Carbon Dioxide Level 22 mmol/L (22-31) Blood Urea Nitrogen 14 mg/dl (7-18) Creatinine 0.70 mg/dl (0.52-1.04) Glomerular Filtration Rate Calc > 60.0 Random Glucose 125 mg/dl (75-110) Calcium Level 9.3 mg/dl (8.4-10.2) Magnesium Level 2.2 mg/dl (1.7-2.2) Total Bilirubin 0.2 mg/dl (0.2-1.3) Aspartate Amino Transf (AST/SGOT) 22 U/L (0-35) Alanine Aminotransferase (ALT/SGPT) 24 U/L (0-56) Alkaline Phosphatase 94 U/L (0-126) Total Protein 8.3 g/dl (6.3-8.2) Albumin 4.5 g/dl (3.5-5.0) Salicylates Level < 10 mg/L Salicylate Last Dose Date unk Acetaminophen Level < 10 ug/ml Serum Alcohol < 10 mg/dl Chemistry Test 09/26/18 16:24 09/26/18 16:32 Urine Color Yellow Urine Clarity Clear Urine pH 6.0 pH (4.8-9.5) Urine Specific [place] 1.014 Urine Protein Negative mg/dL (NEGATIVE) Urine Glucose (UA) Negative mg/dL (NEGATIVE) Urine Ketones Negative mg/dL (NEGATIVE) Urine Blood Moderate (NEGATIVE) Urine Nitrite Negative (NEGATIVE) Urine Bilirubin Negative (NEGATIVE) Urine Urobilinogen 2.0 mg/dL (0.2-1.9) Urine Leukocyte Esterase Small (NEGATIVE) Urine RBC 2 /HPF (0-2/HPF) Urine WBC <1 /HPF (0-5/HPF) Urine Squamous Epithelial Cells Many /LPF (</=FEW) Urine Bacteria Few /HPF (NONE-FEW) Urine Mucus Few /HPF (NONE-FEW) Urine HCG, Qualitative Negative (NEGATIVE) Urine Opiates Screen Negative Urine Barbiturates Screen Negative Ur Tricyclic Antidepressants Screen Negative Urine Phencyclidine Screen Negative Urine Amphetamines Screen Negative Urine Benzodiazepines Screen Negative Urine Cocaine Screen Negative Urine Cannabinoids Screen Negative White Blood Count 5.3 k/uL (4.5-11.0) Red Blood Count 4.52 M/uL (4.17-5.56) Hemoglobin 12.5 g/dL (12.0-16.0) Hematocrit 38.3 % (34.0-47.0) Mean Corpuscular Volume 84.8 fL (80.0-96.0) Mean Corpuscular Hemoglobin 27.7 pg (26.0-33.0) Mean Corpuscular Hemoglobin Concent 32.7 g/dL (32.0-36.0) Red Cell Distribution Width 14.3 % (11.5-14.5) Platelet Count 307 K/uL (150-450) Mean Platelet Volume 7.8 fL (7.2-11.1) Neutrophils (%) (Auto) 54.0 % (39.4-72.5) Lymphocytes (%) (Auto) 34.9 % (17.6-49.6) Monocytes (%) (Auto) 8.0 % (4.1-12.4) Eosinophils (%) (Auto) 2.5 % (0.4-6.7) Basophils (%) (Auto) 0.6 % (0.3-1.4) Nucleated RBC Relative Count (auto) 0.0 /100WBC Neutrophils # (Auto) 2.9 K/uL (2.0-7.4) Lymphocytes # (Auto) 1.8 K/uL (1.3-3.6) Monocytes # (Auto) 0.4 K/uL (0.3-1.0) Eosinophils # (Auto) 0.1 K/uL (0.0-0.5) Basophils # (Auto) 0.0 K/uL (0.0-0.1) Nucleated RBC Absolute Count (auto) 0.00 K/uL Glomerular Filtration Rate Calc > 60.0 Calcium Level 9.3 mg/dl (8.4-10.2) Magnesium Level 2.2 mg/dl (1.7-2.2) Total Bilirubin 0.2 mg/dl (0.2-1.3) Aspartate Amino Transf (AST/SGOT) 22 U/L (0-35) Alanine Aminotransferase (ALT/SGPT) 24 U/L (0-56) Alkaline Phosphatase 94 U/L (0-126) Total Protein 8.3 g/dl (6.3-8.2) Albumin 4.5 g/dl (3.5-5.0) Salicylates Level < 10 mg/L Salicylate Last Dose Date unk Acetaminophen Level < 10 ug/ml Serum Alcohol < 10 mg/dl Toxicology Test 09/26/18 16:24 09/26/18 16:32 Urine Opiates Screen Negative Urine Barbiturates Screen Negative Ur Tricyclic Antidepressants Screen Negative Urine Phencyclidine Screen Negative Urine Amphetamines Screen Negative Urine Benzodiazepines Screen Negative Urine Cocaine Screen Negative Urine Cannabinoids Screen Negative Salicylates Level < 10 mg/L Salicylate Last Dose Date unk Acetaminophen Level < 10 ug/ml Serum Alcohol < 10 mg/dl Urinalysis Test 09/26/18 16:24 Urine Color Yellow Urine Clarity Clear Urine pH 6.0 pH (4.8-9.5) Urine Specific [place] 1.014 Urine Protein Negative mg/dL (NEGATIVE) Urine Glucose (UA) Negative mg/dL (NEGATIVE) Urine Ketones Negative mg/dL (NEGATIVE) Urine Blood Moderate (NEGATIVE) Urine Nitrite Negative (NEGATIVE) Urine Bilirubin Negative (NEGATIVE) Urine Urobilinogen 2.0 mg/dL (0.2-1.9) Urine Leukocyte Esterase Small (NEGATIVE) Urine RBC 2 /HPF (0-2/HPF) Urine WBC <1 /HPF (0-5/HPF) Urine Squamous Epithelial Cells Many /LPF (</=FEW) Urine Bacteria Few /HPF (NONE-FEW) Urine Mucus Few /HPF (NONE-FEW) Urine HCG, Qualitative Negative (NEGATIVE) ED Course/Re-evaluation ED Course Patient admitted to an exam room, history and physical obtained, differential diagnoses considered. Patient reports suicidal ideation today. Reports that she got into her car today and had thoughts of driving her car off of a bridge or anything that would end her life. Patient called her counselor who advised her to go to the ER. Patient was brought to the ED by her daughter who she states is a big support for her. Patient has attempted suicide over 27 times in the past, last occurrence was in April. Patient states she recently moved in with her boyfriend, which she feels is the trigger to her recent suicidal thoughts. Reports that she was in [place] last week where she slept most of the time and wished she wouldn't wake up. When she returned home last week, stressors snowballed throughout the week, including moving in with her boyfriend and she had enough stress build up that it led to her suicidal thoughts. Patient would like to be admitted to [facility]. Toxicology screen performed. [facility] consulted and [facility] tech interviewed patient. Dr. López agreed to admit patient to [facility]. Patient transferred to [facility]. 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 López consulted for admission to [facility]. Provider in agreement to admit to [facility]. Problem Qualifiers Additional Impression: Bipolar disorder Active/Remission status: currently active Current bipolar episode type: depressed Current episode severity: severe Psychotic features: without psychotic features Qualified Codes: F31.4 - Bipolar disorder, current episode depressed, severe, without psychotic features SHERLYN RAMIREZ Sep 26, 2018 16:26
[2018-09-26 16:47] LABS: PLATELET COUNT, AUTOMATED 307 K/uL (150-450)
[2018-09-26] MEDS ORDERED: LORazepam 1 MG TAB PO ONE (17:15)
[2018-09-26 18:04] VITALS: BP 110/70
== END 2018-09-26 18:09 ==
LOC: ER 16:13
DX: F31.4 Bipolar disorder, current episode depressed, severe, without psychotic features (principal); R45.851 Suicidal ideations; E11.9 Type 2 diabetes mellitus without complications
CPT/HCPCS: 36415; 80305; 81001; 81025; 83735; 84443; 85025; 99284; G0480; 80320; 80329; 82040; 82247; 82310; 82374; 82435; 82565; 82947; 84075; 84132; 84155; 84295; 84450; 84460; 84520

== ENCOUNTER 2018-09-26 18:00 | Inpatient (IN) | payer MEDICAID ==
[2016-07-13 09:02] VITALS: Ht 170.2 cm; Wt 110.2 kg
[~2018-09-26] VITALS: Ht 170.2 cm; Wt 110.2 kg
[~2018-09-26 18:00] MED LIST changes: +OLAN10TA21 PO; +SERT-173 PO
[2018-09-26] MEDS ORDERED: IBUPROFEN 200 MG TAB PO PRN (19:30)
[2018-09-26] MEDS ORDERED: ACETAMINOPHEN 325 MG TAB PO PRN (19:30)
[2018-09-26] MEDS ORDERED: MAG HYD/AL HYD/SIMETH 30ML UDC PO PRN (19:30)
[2018-09-26] MEDS ORDERED: hydrOXYzine PAMOATE 25 MG CAP PO PRN (19:30)
[2018-09-26 19:41] VITALS: BP 104/71
[2018-09-26] MEDS ORDERED: NICOTINE CARTRIDGE 1 EA PO PRN (20:35)
[2018-09-26] MEDS: OLANZapine 5 MG TAB PO SCH (21:15)
[2018-09-26] MEDS: SERTRALINE HCL 50 MG TAB PO SCH (21:16)
[2018-09-27 06:06] VITALS: BP 95/66
[2018-09-27] MEDS: MULTIVITAMINS PO SCH (08:21)
[2018-09-27] MEDS ORDERED: metFORMIN HCL 500 MG TAB PO SCH ×2 (09:00→21:00)
--- NOTE | 2018-09-27 09:54 | EKG ---
FACILITY: [facility] PATIENT NAME: SHAKA LORENZ : [id number] MR: [id number] V: [id number] EXAM DATE: ORDERING PHYSICIAN: JUNE LNIARES TECHNOLOGIST: CULLEN Willams Reason : Blood Pressure : / mmHG Vent. Rate : 071 BPM Atrial Rate : 071 BPM P-R Int : 156 ms QRS Dur : 090 ms QT Int : 378 ms P-R-T Axes : 043 059 042 degrees QTc Int : 410 ms Normal sinus rhythm Normal ECG No previous ECGs available Confirmed by Stefan Duong [id number]) on 09/27/2018 4:31:35 PM Referred By: Confirmed By:Stefan David
[2018-09-27 11:40] VITALS: BP 103/70
[2018-09-27 11:45] VITALS: BP 103/70
[2018-09-27] MEDS: NICOTINE INH SYSTEM 10 MG/INH INH PRN ×2 (14:06→16:10)
[2018-09-27] MEDS: valACYclovir HCL 500 MG TAB PO SCH (15:50)
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
[2018-09-27] MEDS: OLANZapine 5 MG TAB PO SCH (20:50)
[2018-09-27] MEDS: SERTRALINE HCL 50 MG TAB PO SCH (20:50)
[2018-09-27 21:59] VITALS: BP 112/83
[2018-09-28 06:32] VITALS: BP 93/61
[2018-09-28] MEDS: valACYclovir HCL 500 MG TAB PO SCH (08:24)
[2018-09-28] MEDS: MULTIVITAMINS PO SCH (08:24)
[2018-09-28] MEDS: metFORMIN HCL 500 MG TAB PO SCH ×2 (08:24→17:20)
[2018-09-28 13:39] VITALS: BP 100/64
--- NOTE | 2018-09-28 13:42 | BHS Progress Note ---
S - Subjective Progress Notes Subjective Jose Luis had been actively working on her emotional issues and trying to apply what she is learning in DBT. Specifically, she is using the REBT protocol and has found that helps her. She realizes that boredom is a big problem for her. This is especially the case since she is not going to be working. She has been thinking about ways to occupy her time with volunteer work or other activities. She tends to stay in bed when not actively engaged. Jose Luis also feels that she is not "ready for a relationship." She is thinking that her boyfriend's moving in with her has caused a lot of problems. Jose Luis is better as far as her depression today. She rates it at a "2" on a scale of one-to-ten. She has had no thoughts of suicide since yesterday afternoon. She still feels anxious often. I got a call back from Jose Luis's psychiatrist, Dr. Gutierrez, at [facility] in [place]. We talked about her needs, reviewed her medications history and discussed changes to her medication. I learned that Dr. Gutierrez did not taper Cheslyjoaquin off of the Lamictal. She stopped it on her own when she ran out while visiting parents in [place]. After this conversation, I am continuing the Zyprexa and increasing the Zoloft to [address] Gutierrez will explore alternatives to Zyprexa after she is released from the hospital and see her in the clinic soon. We also discussed discharge options including [facility] in [place] as a step-down. Suicidal Ideation: None Homicidal Ideation: None S - Objective Physical Exam Vital Signs Vital Signs 09/28/18 06:32 Temp 98.4 Pulse 75 Resp 15 B/P (MAP) 93/61 (72) Pulse Ox 93 O2 Delivery CPAP Muscle Strength and Tone: WNL Gait and Station: Steady [facility] Medications Reviewed: Side Effects, Benefits of Medication, Risks Allergies Reviewed: Yes Mental Status Exam General Appearance: Casual, Well Groomed, Good Eye Contact, Cooperative, Polite Speech: Clear, Spontaneous, Normal Rate, Normal Rhythm, Normal Volume, Normal Tone Mood: Other (depression is a two out of ten. Has anxiety) Affect: Full and Appropriate Thought Process: Organized, Logical, Goal Directed Thought Content: No Suicidal Ideation, No Homicidal Ideation Sensorium: Clear Cognition: Alert & Oriented-Person, Alert & Oriented-Place, Alert & Oriented- Time, Nexci-Kqtctlwh-Gquuevxar, Other Memory: Immediate, Recent, Remote, Other Intelligence: Average Insight Judgment: Fair [facility] Assessment and Plan Optv-sl-Iasg Encounter Date: Sep 28, 2018 Xylq-vd-Eick Encounter Time: 11:00 [facility] Plan: Admit to Unit, Necessary Precautions, Individual/Group Therapy, Admin/Titrate Meds, Educate Patient Problems: (1) Schizoaffective disorder, bipolar type Assessment & Plan: Will continue Zyprexa for now and increase Zoloft to 150 mgs. Continue group and individual therapy (2) Borderline personality disorder Status: Chronic (3) Diabetes mellitus type 2 in obese Assessment & Plan: Continue metformin 500 mgs twice daily. (4) Recurrent genital herpes Status: Acute Assessment & Plan: Valtrex Condition Jose Luis is less depressed today than yesterday and much less than two days ago even without major medication changes suggesting a high vulnerability to stress. I will increase her Zoloft and continue the other medications the same for now. JUNE LINARES DO Sep 28, 2018 13:42
[2018-09-28] MEDS: OLANZapine 5 MG TAB PO SCH (20:42)
[2018-09-28] MEDS ORDERED: SERTRALINE HCL 50 MG TAB PO SCH (21:00)
[2018-09-28 22:37] VITALS: BP 105/67
[2018-09-29 06:16] VITALS: BP 98/65
[2018-09-29] MEDS: MULTIVITAMINS PO SCH (08:19)
[2018-09-29] MEDS: valACYclovir HCL 500 MG TAB PO SCH (08:19)
[2018-09-29] MEDS: metFORMIN HCL 500 MG TAB PO SCH (08:19)
[2018-09-29] MEDS ORDERED: METF-450 PO (12:58)
[2018-09-29] MEDS ORDERED: SERT-173 PO (16:52)
[2018-09-29] MEDS ORDERED: SERT-184 PO (16:54)
[2018-09-29] MEDS ORDERED: OLAN10TA21 PO (16:55)
--- NOTE | 2018-09-30 23:47 | DISCHARGE SUMMARY ---
DATE OF ADMISSION: September 26, 2018 DATE OF DISCHARGE: September 29, 2018 ATTENDING PHYSICIAN Radha López DO TYPE OF ADMISSION Voluntary. TYPE OF DISCHARGE Routine. DISCHARGE DIAGNOSES 1. Schizoaffective disorder, bipolar type. 2. Borderline personality disorder. 3. Diabetes mellitus type 2. 4. Obesity. 5. Recurrent genital herpes. PRESENTING PROBLEMS AND REASON FOR ADMISSION Jose Luis presented to the Emergency Department on the evening of 09/26/18 reporting that she had gotten into her car on that day, but was having thoughts of driving off a bridge or doing something that would end her life. She called her counselor, who advised her to go to the Emergency Department. Her daughter brought her there. Jose Luis is considered a high risk given that she has attempted suicide over 27 times in the past, and the most recent episode was last April when she cut her left wrist. Another stressor of note is that her boyfriend had recently moved in to her home, and this had caused her more difficulty. She had been in [place] the previous week to visit her parents, but slept most of the time and said that she wished she would not wake up. When she returned home, she found her stressors to be overwhelming and began once again to think about suicide. I interviewed the patient on the morning of 09/27/18. At that time, she affirmed that she was feeling "stressed out" and thinking a lot about suicide. She believed that it was a mistake for her to have her boyfriend move in, but was frustrated because he had no other place to live. She also mentioned that she has been seeing Dr. Gutierrez, a psychiatrist in [place], for psychiatric care. Dr. Gutierrez has been recommending ECT for Jose Luis, which she is concerned about. Jose Luis also reported that Dr. Gutierrez had been tapering off Lamictal in anticipation of this procedure. MEDICATIONS ON ADMISSION 1. Zyprexa 10 mg daily. 2. Zoloft 100 mg daily. 3. Metformin 500 mg daily. 4. Valacyclovir 800 mg daily as needed for genital herpes. 5. Victoza 0.6 mg subcutaneously daily. HOSPITAL COURSE AND TREATMENT PROVIDED Following admission, I contacted the patient's primary care physician, Kee Gomez MD. We discussed her medical needs and, specifically, her diabetes. Jose Luis has only recently been diagnosed with diabetes. She is taking both Victoza and metformin. We agreed that it might be reasonable to increase the metformin at this time and to drop the Victoza given her favorable blood sugars and hemoglobin A1c. We also discussed our concerns about her treatment with the Zyprexa given her diabetes and hoping to find an alternative if possible. Also during this admission, I spoke with the patient's psychiatrist, Dr. Veronica Gutierrez at [facility] in [place]. She said that she was considering electroconvulsive therapy for Jose Luis. She said that she did not stop the Lamictal that Jose Luis had been taking, but that Jose Luis stopped it on her own when she was visiting her parents in [place]. We discussed treatment options and agreed that it would be reasonable to continue the Zyprexa for now and to focus on increasing Zoloft to 150 mg. We did not re-start Lamictal. Dr. Gutierrez said she would explore alternatives to Zyprexa following Jose Luis's discharge from the hospital and see her in the clinic soon. During this hospitalization, Jose Luis had an outbreak of her genital herpes, and I restarted her on valacyclovir 1000 mg daily. Jose Luis was engaged in individual and group therapy, emphasizing stress management skills and reinforcing a safety plan. In particular, we talked about her current stressors and what she needs to do now to eliminate the conditions that were causing her to feel anxious and suicidal prior to admission. She feels that it is not good for her to live with her boyfriend, and she will work towards finding another place for him. Jose Luis's preference is to move to [place] where she can attend more groups at [facility]. She is pursuing Social Security Disability Income at this time. RESULTS OF TESTING During this hospital stay, I ordered fingerstick blood sugars after we discontinued the Victoza. Her sugars remained in the 86 to 118 range throughout the day. I ordered an EKG on admission, which showed no signs of conduction disturbance. Her admitting labs included a CBC which revealed a total white count of 5.3 and normal differential. Hemoglobin was 12.5 and hematocrit 38.3. Electrolytes were unremarkable. A BUN was 14 and creatinine 0.7. Random glucose on admission was 125. Transaminases were normal. TSH 1.2. hCG negative. A fasting lipid profile drawn 09/27/18 found a total cholesterol of 199, LDL 133, HDL 48, and LDL/HDL ratio of 2.77. Urine toxicology was unremarkable, and urinalysis showed signs of contamination. CONDITION AT DISCHARGE I last met with Jose Luis at about 10 a.m. on the morning of 09/29/18. At this time, she feels substantially improved and is requesting to be released from the hospital to being outpatient treatment once again. She has a bright and positive affect and rates her depression as 2/10. She denies any suicidal thoughts at this time. She has not experienced any manic symptoms. Speech is normal in rate and volume. Her responses are clear, logical, and goal directed. She is not experiencing any psychotic symptoms. She has no desire to harm herself at this time. ASSESSMENT OF RISKS Jose Luis's primary risk factors are the chronicity of her illness and the number or times she has attempted suicide with minimal provocation. However, she is substantially improved today and highly motivated to continue her outpatient treatment as well as to seek help if her symptoms should recur. I am concerned about Jose Luis's plan to move to [place]. She has a support system here and is well-connected with her therapist in [place] and the community. Jose Luis needs structure through the day. 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 If she is not working, she will need to find other meaningful activities to do. Finally, I think it is important for her treatment team to be able to communicate regarding her needs. It seems that her therapist and her psychiatrist have differing views regarding what is best for Jose Luis. DISCHARGE MEDICATIONS 1. Zyprexa 10 mg daily. 2. Zoloft 150 mg daily. 3. Metformin 500 mg twice daily. 4. Valacyclovir 800 mg daily p.r.n. genital herpes outbreak. DISCHARGE INSTRUCTIONS 1. We made Jose Luis an outpatient appointment to follow up with her therapist at [facility] this coming week. 2. We also contacted [facility] and made arrangements for Jose Luis to see Dr. Gutierrez in [place] within two weeks. 3. Jose Luis will return to see Dr. Gomez for management of her diabetes and other medical needs. 4. Jose Luis was asked to use the crisis line or return to the Emergency Room if symptoms should recur. AMBER
== END 2018-09-29 17:20 | disposition home or self-care (01) | DRG 885 ==
LOC: BHS 18:00
PROVIDERS: ADMIT Psychiatry & Neurology Psychiatry; ATTEND Psychiatry & Neurology Psychiatry
PROC: 5A09357 Assistance with Respiratory Ventilation, Less than 24 Consecutive Hours, Continuous Positive Airway Pressure (ICD-10-PCS; principal; 2018-09-26)
DX: F25.0 Schizoaffective disorder, bipolar type (principal); F60.3 Borderline personality disorder; E11.9 Type 2 diabetes mellitus without complications; F17.210 Nicotine dependence, cigarettes, uncomplicated; Z68.38 Body mass index [BMI] 38.0-38.9, adult; E66.9 Obesity, unspecified; A60.00 Herpesviral infection of urogenital system, unspecified; Z91.5 Personal history of self-harm; Z79.84 Long term (current) use of oral hypoglycemic drugs; Z79.4 Long term (current) use of insulin; Z90.710 Acquired absence of both cervix and uterus
CPT/HCPCS: 36415; 36416; 80305; 80320; 80329; 81001; 81025; 82040; 82247; 82310; 82374; 82435; 82465; 82565; 82947; 82948; 83036; 83718; 83735; 84075; 84132; 84155; 84295; 84443; 84450; 84460; 84478; 84520; 85025; 93005; 99284

== ENCOUNTER 2018-10-25 14:47 | Emergency (ER) | payer MEDICAID ==
[2016-07-13 09:02] VITALS: Wt 113.4 kg
[~2018-10-25 14:47] MED LIST changes: +METF-450 PO; +SERT-184 PO
--- NOTE | 2018-10-25 14:51 | ER Report ---
History and Physical Time Seen By MD: 14:50 HPI/ROS CHIEF COMPLAINT: Depression, suicidal ideation HISTORY OF PRESENT ILLNESS: Patient is a 38-year-old female here with complaints of depression, suicidal ideation while at [facility] today. Patient has a long standing history of depression, several suicidal gestures in the past, previous inpatient hospitalizations. Patient reportedly has been noncompliant with her antidepressants. Patient is active with outpatient therapy however she verbalized that she was suicidal today prompting evaluation in the emergency department. Denies ingestions, alcohol, drug use. REVIEW OF SYSTEMS: Constitutional: No fever, no chills. Eyes: No discharge. ENT: No sore throat. Cardiovascular: No chest pain, no palpitations. Respiratory: No cough, no shortness of breath. Gastrointestinal: No abdominal pain, no vomiting. Genitourinary: No hematuria. Musculoskeletal: No back pain. Skin: No rashes. Neurological: No headache. Psych: Depressed appearing, flat affect Allergies: Coded Allergies: bupropion (Verified Allergy, Severe, MIGRAINE/MUSCLE SPASMS, 09/26/18) amoxicillin (Verified Allergy, Mild, 09/26/18) lidocaine (Verified Allergy, Mild, 09/26/18) Penicillins (Verified Adverse Reaction, Severe, THROWS UP VIOLENTLY, 09/26/18) codeine (Verified Adverse Reaction, Intermediate, NAUSEA/VOMITING, 09/26/18) iloperidone (Verified Adverse Reaction, Unknown, 09/26/18) NEUTROPENIA Uncoded Allergies: GRASSES (Allergy, Intermediate, 04/22/10) Home Meds Reported Medications Nicotine (NICOTROL) 10 Mg/Inh Ctr, 10 MG INH PRN PRN for NICOTINE REPLACEMENT 10/27/18 Lurasidone Hcl (LATUDA) 40 Mg Tablet, 40 MG PO QHS 10/27/18 Sertraline Hcl (ZOLOFT) 100 Mg Tablet, 2 TAB PO QHS, TAB 09/29/18 Metformin Hcl (METFORMIN HCL) 500 Mg Tablet, 1 TAB PO BID, TAB 09/29/18 Discontinued Reported Medications Olanzapine (ZYPREXA) 10 Mg Tablet, 10 MG PO QHS 09/29/18 Sertraline Hcl (SERTRALINE HCL) 50 Mg Tablet, 1 TAB PO QHS, TAB 09/29/18 Hx Smoking: Yes Smoking Status: Current: Every Day Smoker Exposure to Second Hand Smoke?: Yes Hx Substance Use Disorder: No (OCCASSIONAL MARIJUANA) Hx Alcohol Use: No Physical Exam General Appearance: The patient is alert, has no immediate need for airway protection and no signs of toxicity. Depressed appearing, flat affect Eyes: Pupils equal and round no pallor or injection. ENT, Mouth: Mucous membranes are moist. Respiratory: There are no retractions, lungs are clear to auscultation. Cardiovascular: Regular rate and rhythm. [ ] Gastrointestinal: Abdomen is soft and non tender, no masses, bowel sounds normal. Neurological: [ ] Skin: Warm and dry, no rashes. Musculoskeletal: Neck is supple non tender. Extremities are nontender, nonswollen and have full range of motion. DIFFERENTIAL DIAGNOSIS: After history and physical exam differential diagnosis was considered for depression, suicidal ideation, worsening life stressors, medication failure Medical Decision Making Data Points Laboratory Hematology Test 10/25/18 14:50 10/25/18 15:13 Urine Color Yellow Urine Clarity Slightly-cloudy Urine pH 6.0 pH (4.8-9.5) Urine Specific [place] 1.027 Urine Protein Negative mg/dL (NEGATIVE) Urine Glucose (UA) Negative mg/dL (NEGATIVE) Urine Ketones Negative mg/dL (NEGATIVE) Urine Blood Negative (NEGATIVE) Urine Nitrite Negative (NEGATIVE) Urine Bilirubin Negative (NEGATIVE) Urine Urobilinogen Negative mg/dL (0.2-1.9) Urine Leukocyte Esterase Small (NEGATIVE) Urine RBC 7 /HPF (0-2/HPF) Urine WBC 2 /HPF (0-5/HPF) Urine Squamous Epithelial Cells Many /LPF (</=FEW) Urine Bacteria Few /HPF (NONE-FEW) Urine Mucus Few /HPF (NONE-FEW) Urine HCG, Qualitative Negative (NEGATIVE) Urine Opiates Screen Negative Urine Barbiturates Screen Negative Ur Tricyclic Antidepressants Screen Negative Urine Phencyclidine Screen Negative Urine Amphetamines Screen Negative Urine Benzodiazepines Screen Negative Urine Cocaine Screen Negative Urine Cannabinoids Screen Negative Red Blood Count 4.60 M/uL (4.17-5.56) Mean Corpuscular Volume 84.6 fL (80.0-96.0) Mean Corpuscular Hemoglobin 28.1 pg (26.0-33.0) Mean Corpuscular Hemoglobin Concent 33.3 g/dL (32.0-36.0) Red Cell Distribution Width 14.6 % (11.5-14.5) Mean Platelet Volume 7.9 fL (7.2-11.1) Neutrophils (%) (Auto) 43.5 % (39.4-72.5) Lymphocytes (%) (Auto) 40.5 % (17.6-49.6) Monocytes (%) (Auto) 12.2 % (4.1-12.4) Eosinophils (%) (Auto) 3.3 % (0.4-6.7) Basophils (%) (Auto) 0.5 % (0.3-1.4) Nucleated RBC Relative Count (auto) 0.1 /100WBC Neutrophils # (Auto) 1.8 K/uL (2.0-7.4) Lymphocytes # (Auto) 1.7 K/uL (1.3-3.6) Monocytes # (Auto) 0.5 K/uL (0.3-1.0) Eosinophils # (Auto) 0.1 K/uL (0.0-0.5) Basophils # (Auto) 0.0 K/uL (0.0-0.1) Nucleated RBC Absolute Count (auto) 0.00 K/uL Sodium Level 138 mmol/L (137-145) Potassium Level 3.6 mmol/L (3.5-5.0) Chloride Level 107 mmol/L (98-107) Carbon Dioxide Level 21 mmol/L (22-31) Blood Urea Nitrogen 12 mg/dl (7-18) Creatinine 0.80 mg/dl (0.52-1.04) Glomerular Filtration Rate Calc > 60.0 Random Glucose 140 mg/dl (75-110) Calcium Level 9.0 mg/dl (8.4-10.2) Magnesium Level 2.2 mg/dl (1.7-2.2) Total Bilirubin 0.1 mg/dl (0.2-1.3) Aspartate Amino Transf (AST/SGOT) 30 U/L (0-35) Alanine Aminotransferase (ALT/SGPT) 29 U/L (0-56) Alkaline Phosphatase 95 U/L (0-126) Total Protein 8.2 g/dl (6.3-8.2) Albumin 4.3 g/dl (3.5-5.0) Thyroid Stimulating Hormone (TSH) 1.94 uIU/ml (0.46-4.68) Salicylates Level < 10 mg/L Salicylate Last Dose Date unknown Acetaminophen Level < 10 ug/ml Serum Alcohol < 10 mg/dl Chemistry Test 10/25/18 14:50 10/25/18 15:13 Urine Color Yellow Urine Clarity Slightly-cloudy Urine pH 6.0 pH (4.8-9.5) Urine Specific [place] 1.027 Urine Protein Negative mg/dL (NEGATIVE) Urine Glucose (UA) Negative mg/dL (NEGATIVE) Urine Ketones Negative mg/dL (NEGATIVE) Urine Blood Negative (NEGATIVE) Urine Nitrite Negative (NEGATIVE) Urine Bilirubin Negative (NEGATIVE) Urine Urobilinogen Negative mg/dL (0.2-1.9) Urine Leukocyte Esterase Small (NEGATIVE) Urine RBC 7 /HPF (0-2/HPF) Urine WBC 2 /HPF (0-5/HPF) Urine Squamous Epithelial Cells Many /LPF (</=FEW) Urine Bacteria Few /HPF (NONE-FEW) Urine Mucus Few /HPF (NONE-FEW) Urine HCG, Qualitative Negative (NEGATIVE) Urine Opiates Screen Negative Urine Barbiturates Screen Negative Ur Tricyclic Antidepressants Screen Negative Urine Phencyclidine Screen Negative Urine Amphetamines Screen Negative Urine Benzodiazepines Screen Negative Urine Cocaine Screen Negative Urine Cannabinoids Screen Negative White Blood Count 4.2 k/uL (4.5-11.0) Red Blood Count 4.60 M/uL (4.17-5.56) Hemoglobin 12.9 g/dL (12.0-16.0) Hematocrit 38.9 % (34.0-47.0) Mean Corpuscular Volume 84.6 fL (80.0-96.0) Mean Corpuscular Hemoglobin 28.1 pg (26.0-33.0) Mean Corpuscular Hemoglobin Concent 33.3 g/dL (32.0-36.0) Red Cell Distribution Width 14.6 % (11.5-14.5) Platelet Count 289 K/uL (150-450) Mean Platelet Volume 7.9 fL (7.2-11.1) Neutrophils (%) (Auto) 43.5 % (39.4-72.5) Lymphocytes (%) (Auto) 40.5 % (17.6-49.6) Monocytes (%) (Auto) 12.2 % (4.1-12.4) Eosinophils (%) (Auto) 3.3 % (0.4-6.7) Basophils (%) (Auto) 0.5 % (0.3-1.4) Nucleated RBC Relative Count (auto) 0.1 /100WBC Neutrophils # (Auto) 1.8 K/uL (2.0-7.4) Lymphocytes # (Auto) 1.7 K/uL (1.3-3.6) Monocytes # (Auto) 0.5 K/uL (0.3-1.0) Eosinophils # (Auto) 0.1 K/uL (0.0-0.5) Basophils # (Auto) 0.0 K/uL (0.0-0.1) Nucleated RBC Absolute Count (auto) 0.00 K/uL Glomerular Filtration Rate Calc > 60.0 Calcium Level 9.0 mg/dl (8.4-10.2) Magnesium Level 2.2 mg/dl (1.7-2.2) Total Bilirubin 0.1 mg/dl (0.2-1.3) Aspartate Amino Transf (AST/SGOT) 30 U/L (0-35) Alanine Aminotransferase (ALT/SGPT) 29 U/L (0-56) Alkaline Phosphatase 95 U/L (0-126) Total Protein 8.2 g/dl (6.3-8.2) Albumin 4.3 g/dl (3.5-5.0) Thyroid Stimulating Hormone (TSH) 1.94 uIU/ml (0.46-4.68) Salicylates Level < 10 mg/L Salicylate Last Dose Date unknown Acetaminophen Level < 10 ug/ml Serum Alcohol < 10 mg/dl Toxicology Test 10/25/18 14:50 10/25/18 15:13 Urine Opiates Screen Negative Urine Barbiturates Screen Negative Ur Tricyclic Antidepressants Screen Negative Urine Phencyclidine Screen Negative Urine Amphetamines Screen Negative Urine Benzodiazepines Screen Negative Urine Cocaine Screen Negative Urine Cannabinoids Screen Negative Salicylates Level < 10 mg/L Salicylate Last Dose Date unknown Acetaminophen Level < 10 ug/ml Serum Alcohol < 10 mg/dl Urinalysis Test 10/25/18 14:50 Urine Color Yellow Urine Clarity Slightly-cloudy Urine pH 6.0 pH (4.8-9.5) Urine Specific [place] 1.027 Urine Protein Negative mg/dL (NEGATIVE) Urine Glucose (UA) Negative mg/dL (NEGATIVE) Urine Ketones Negative mg/dL (NEGATIVE) Urine Blood Negative (NEGATIVE) Urine Nitrite Negative (NEGATIVE) Urine Bilirubin Negative (NEGATIVE) Urine Urobilinogen Negative mg/dL (0.2-1.9) Urine Leukocyte Esterase Small (NEGATIVE) Urine RBC 7 /HPF (0-2/HPF) Urine WBC 2 /HPF (0-5/HPF) Urine Squamous Epithelial Cells Many /LPF (</=FEW) Urine Bacteria Few /HPF (NONE-FEW) Urine Mucus Few /HPF (NONE-FEW) Urine HCG, Qualitative Negative (NEGATIVE) ED Course/Re-evaluation ED Course Patient is a 38-year-old female with long-standing history of depression, suicidal ideation with exacerbation today. Patient was sent in from [facility] for behavioral health services admission. Patient admits to thoughts of harming herself however, aspirin, tox screen was unremarkable. I discussed the patient with Dr. Dorado who accepted the patient to behavioral health services. Decision to Disposition Date: Oct 25, 2018 Decision to Disposition Time: 16:00 Depart Departure Impression: Primary Impression: Suicidal ideations Additional Impression: Depressed Condition: Improved Disposition: XFER TO [facility] Problem Qualifiers GLADYS WELSH DO Oct 25, 2018 14:50
[2018-10-25 15:00] VITALS: BP 121/78
[2018-10-25] MEDS ORDERED: LORazepam 1 MG TAB PO ONE (15:20)
[2018-10-25 15:31] LABS: PLATELET COUNT, AUTOMATED 289 K/uL (150-450)
== END 2018-10-25 16:13 ==
LOC: ER 14:58
DX: R45.851 Suicidal ideations (principal); F32.9 Major depressive disorder, single episode, unspecified
CPT/HCPCS: 80305; 81001; 81025; 83735; 84443; 85025; 99284; G0480; 80320; 80329; 82040; 82247; 82310; 82374; 82435; 82565; 82947; 84075; 84132; 84155; 84295; 84450; 84460; 84520

== ENCOUNTER 2018-10-25 15:58 | Inpatient (IN) | payer MEDICAID ==
[2016-07-13 09:02] VITALS: Ht 157.5 cm; Wt 113.4 kg
[~2018-10-25] VITALS: Ht 157.5 cm; Wt 113.4 kg
[2018-10-25] MEDS ORDERED: ACETAMINOPHEN 325 MG TAB PO PRN (16:30)
[2018-10-25] MEDS ORDERED: hydrOXYzine PAMOATE 25 MG CAP PO PRN (16:30)
[2018-10-25] MEDS ORDERED: MAG HYD/AL HYD/SIMETH 30ML UDC PO PRN (16:30)
[2018-10-25 16:55] VITALS: BP 107/81
[2018-10-25] MEDS: metFORMIN HCL 500 MG TAB PO SCH (17:53)
[2018-10-25] MEDS ORDERED: NICOTINE INH SYSTEM 10 MG/INH INH PRN (19:25)
[2018-10-25] MEDS ORDERED: NICOTINE CARTRIDGE 1 EA PO PRN (19:25)
[2018-10-25] MEDS ORDERED: SERTRALINE HCL 50 MG TAB PO SCH (21:00)
[2018-10-25] MEDS ORDERED: OLANZapine 5 MG TAB PO SCH (21:00)
[2018-10-26 06:09] VITALS: BP 82/45
[2018-10-26] MEDS: metFORMIN HCL 500 MG TAB PO SCH ×2 (08:47→17:09)
[2018-10-26] MEDS: MULTIVITAMINS PO SCH (08:47)
[2018-10-26] MEDS ORDERED: LURASIDONE 40 MG TAB PO SCH (21:00)
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
[2018-10-27 05:37] VITALS: BP 82/53
[2018-10-27] MEDS: metFORMIN HCL 500 MG TAB PO SCH (08:10)
[2018-10-27] MEDS: MULTIVITAMINS PO SCH (08:10)
[2018-10-27] MEDS ORDERED: FLUCONAZOLE 150 MG TAB PO ONE (09:00)
[2018-10-27] MEDS ORDERED: SERTRALINE HCL 50 MG TAB PO SCH (09:00)
--- NOTE | 2018-10-27 09:07 | Antimicrobial Stewardship ---
Antimicrobial Time Out Antimicrobial Stewardship MD Service: Other ([facility] ) Indications: Other (Uncomplicated Viginal candidiasis) Antimicrobial Used Fluconazole 150 mg Once Start Date: Oct 27, 2018 DEBORAH FUENTES V Oct 27, 2018 09:07
[2018-10-27] MEDS ORDERED: NIC10R INH (09:31)
[2018-10-27] MEDS ORDERED: LURA40TA3 PO (09:31)
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
== END 2018-10-27 12:26 | disposition home or self-care (01) | DRG 883 ==
LOC: BHS 15:58
PROVIDERS: ADMIT Psychiatry & Neurology Psychiatry; ATTEND Psychiatry & Neurology Psychiatry
DX: F60.3 Borderline personality disorder (principal); R45.851 Suicidal ideations; F43.12 Post-traumatic stress disorder, chronic; E11.9 Type 2 diabetes mellitus without complications; F17.210 Nicotine dependence, cigarettes, uncomplicated; Z62.810 Personal history of physical and sexual abuse in childhood

== ENCOUNTER 2019-01-18 21:24 | Emergency (ER) | payer MEDICAID ==
[2016-07-13 09:02] VITALS: Wt 106.6 kg
[~2019-01-18 21:24] MED LIST changes: -TRAZ50TA34 PO; +TRAZ50TA52 PO
--- NOTE | 2019-01-18 21:27 | ER Report ---
History and Physical Time Seen By MD: 21:24 HPI/ROS CHIEF COMPLAINT: Painful hemorrhoid HISTORY OF PRESENT ILLNESS: 38-year-old black female presents ambulatory to the ER complaining. She is unable to sit down. She is complaining of 9/10 pain. She can feel a palpable hemorrhoid near her rectum. Patient notes no bleeding. He does have a history of previous hemorrhoids. Allergies: Coded Allergies: bupropion (Verified Allergy, Severe, MIGRAINE/MUSCLE SPASMS, 09/26/18) amoxicillin (Verified Allergy, Mild, 09/26/18) lidocaine (Verified Allergy, Mild, 09/26/18) Penicillins (Verified Adverse Reaction, Severe, THROWS UP VIOLENTLY, 09/26/18) codeine (Verified Adverse Reaction, Intermediate, NAUSEA/VOMITING, 09/26/18) iloperidone (Verified Adverse Reaction, Unknown, 09/26/18) NEUTROPENIA Uncoded Allergies: GRASSES (Allergy, Intermediate, 04/22/10) Home Meds Reported Medications Nicotine (NICOTROL) 10 Mg/Inh Ctr, 10 MG INH PRN PRN for NICOTINE REPLACEMENT 10/27/18 Lurasidone Hcl (LATUDA) 40 Mg Tablet, 40 MG PO QHS 10/27/18 Sertraline Hcl (ZOLOFT) 100 Mg Tablet, 2 TAB PO QHS, TAB 09/29/18 Metformin Hcl (METFORMIN HCL) 500 Mg Tablet, 1 TAB PO BID, TAB 09/29/18 Past Medical/Surgical History Past medical history significant for migraines, heart murmur when younger, gastric ulcers, back pain, right shoulder fracture in 2006, diabetes, anemia, bipolar, schizophrenic affective disorder, multiple personality disorder, depresion. Past surgical history significant for umbilical hernia repair at 2 months of age, appendectomy at age 12 or 13, hysterectomy 2008, tubal ligation in 2007, right shoulder surgery in 2006, nose cauterized 4-6 times at ages 5 and 6, tons illectomy at age 13. Reviewed Nurses Notes: Yes Old Medical Records Reviewed: Yes Hx Smoking: Yes Smoking Status: Current: Every Day Smoker Exposure to Second Hand Smoke?: No Hx Substance Use Disorder: No (OCCASSIONAL MARIJUANA) Hx Alcohol Use: No Constitutional Vital Sign - Last 24 Hours 01/18/19 01/18/19 21:28 22:09 Temp 98.1 Pulse 65 Resp 14 B/P (MAP) 111/56 100/51 (67) Pulse Ox 92 Physical Exam General appearance: Alert no distress. Respiratory: Chest is non tender, lungs are clear to auscultation. Cardiac: Regular rate and rhythm Rectum: There is a thrombosed hemorrhoid on the right lateral side of the rectum. It's approximately 1 cm in diameter. It is firm and tender. DIFFERENTIAL DIAGNOSIS: After history and physical exam differential diagnosis was considered for hemorrhoids, thrombosed hemorrhoid on the perirectal abscess Medical Decision Making ED Course/Re-evaluation ED Course Patient was admitted to an examination room. H&P was done. The differential diagnoses was considered. Patient with a parents with thrombosed hemorrhoid the right lateral rectal area. Risks and benefits of thrombosed hemorrhoid drainage were considered. ED procedure incision and drainage of a thrombosed hemorrhoid Risks and benefits were explained to the patient she gives verbal consent. The wound was cleansed with Betadine. A 2 x 2 saturated and 4% topical lidocaine was placed at the site and after 5 minutes the local area was injected with Sensorcaine 0.5% with epinephrine, approximately 4 mL. The wound was again prepped with Betadine. A #11 scalpel blade was used to make a small 5 mm incision. Approximately 1 mL of black thrombosed clot was expressed. The hemorrhoid appears at baseline level. Now after the clot was removed. Patient' s advised. Warm sits baths. She is advised wound care. Patient's referred to general surgery for further evaluation if she has any further hemorrhoidal problems. Decision to Disposition Date: Jan 18, 2019 Decision to Disposition Time: 21:59 Depart Departure Latest Vital Signs Vital Signs Date Time Temp Pulse Resp B/P (MAP) Pulse Ox O2 Delivery O2 Flow Rate FiO2 01/18/19 22:09 100/51 (67) 01/18/19 21:28 98.1 65 14 92 Impression: Primary Impression: Thrombosed external hemorrhoid Additional Impression: Status post incision and drainage Condition: Improved Disposition: HOME OR SELF-CARE Referrals: SADAF CHONG JOHN A MD Patient Instructions: Hemorrhoids (ED) Additional Instructions: Take MiraLAX twice daily for 3 days, then once daily. He may back off to every other day. If you have stools that are too loose Follow-up with general surgery. There names are listed on the paperwork Perform hot soaks in the bathtub, cleanse the area with baby shampoo Problem Qualifiers NIKO MARTINO DO Jan 18, 2019 21:27
[2019-01-18 22:09] VITALS: BP 100/51
== END 2019-01-18 22:10 | disposition home or self-care (01) ==
LOC: ER 21:46
DX: K64.5 Perianal venous thrombosis (principal)
CPT/HCPCS: 99282

== ENCOUNTER 2019-02-10 19:17 | Emergency (ER) | payer MEDICAID ==
[2016-07-13 09:02] VITALS: Wt 106.6 kg
--- NOTE | 2019-02-10 19:19 | ER Report ---
History and Physical Allergies: Coded Allergies: bupropion (Verified Allergy, Severe, MIGRAINE/MUSCLE SPASMS, 09/26/18) amoxicillin (Verified Allergy, Mild, 09/26/18) lidocaine (Verified Allergy, Mild, 09/26/18) Penicillins (Verified Adverse Reaction, Severe, THROWS UP VIOLENTLY, 09/26/18) codeine (Verified Adverse Reaction, Intermediate, NAUSEA/VOMITING, 09/26/18) iloperidone (Verified Adverse Reaction, Unknown, 09/26/18) NEUTROPENIA Uncoded Allergies: GRASSES (Allergy, Intermediate, 04/22/10) Home Meds Reported Medications Nicotine (NICOTROL) 10 Mg/Inh Ctr, 10 MG INH PRN PRN for NICOTINE REPLACEMENT 10/27/18 Lurasidone Hcl (LATUDA) 40 Mg Tablet, 40 MG PO QHS 10/27/18 Sertraline Hcl (ZOLOFT) 100 Mg Tablet, 2 TAB PO QHS, TAB 09/29/18 Metformin Hcl (METFORMIN HCL) 500 Mg Tablet, 1 TAB PO BID, TAB 09/29/18 Reviewed Nurses Notes: Yes Old Medical Records Reviewed: Yes Hx Smoking: Yes Smoking Status: Current: Every Day Smoker Exposure to Second Hand Smoke?: No Hx Substance Use Disorder: No (OCCASSIONAL MARIJUANA) Hx Alcohol Use: No Depart Departure Condition: Stable Disposition: HOME OR SELF-CARE NIKO MARTINO DO Feb 10, 2019 19:19
[2019-02-10 19:21] VITALS: BP 112/77
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
--- NOTE | 2019-02-10 20:06 | RADIOLOGY IMAGING REPORT ---
FACILITY: [facility] [place] PATIENT NAME: Jose Luis Roberts : 1980 MR: [id number] V: [id number] EXAM DATE: ORDERING PHYSICIAN: PRIMO JUAREZ TECHNOLOGIST: Location: [facility] [place] Patient: Jose Luis Roberts : 1980 Visit/Account:[id number] Date of Sevice: 02/10/2019 Examination: XR WRIST 3 OR MORE VIEWS LT Comparison: None. History: continued wrist pain with decreased ROM Findings: No fracture. Scapholunate interval is widened. No evidence of carpal migration. No soft tis rebekah abnormality. IMPRESSION: 1. No left wrist fracture. 2. Widened scapholunate interval is suggestive of a scapholunate ligament disruption. Correlation wit h any evidence of carpal instability is recommended. Report Dictated By: Elbert Watkins MD at 02/10/2019 7:55 PM Report E-Signed By: Elbert Watkins MD at 02/10/2019 7:58 PM WSN:[id number]
== END 2019-02-10 20:30 | disposition home or self-care (01) ==
LOC: ER 19:20
DX: M25.532 Pain in left wrist (principal)
CPT/HCPCS: 73110; 99283; L3763

== ENCOUNTER 2019-02-14 12:16 | Emergency (ER) | payer MEDICAID ==
[2016-07-13 09:02] VITALS: Wt 106.6 kg
[2019-02-14 12:21] VITALS: BP 120/79
[2019-02-14] MEDS ORDERED: MIRT-1 PO (12:25)
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
== END 2019-02-14 13:07 | disposition home or self-care (01) ==
LOC: ER 12:31
DX: M25.532 Pain in left wrist (principal)
CPT/HCPCS: 99282; L3763